=== PATIENT | female | born 1990 | race Caucasian/White ===

== ENCOUNTER 2019-08-31 06:01 | Inpatient (IN) | payer OTHER, SELFPAY ==
[2019-08-31] VITALS (150 sets, daily range): BP systolic 100–151; BP diastolic 47–108; PULSE 25–203; RESP 16–18; TEMP 35.8–37.4; O2SAT 75–100; BMI 32.5
--- NOTE | 2019-08-31 06:01 | LDADM ---
This patient, Ifrah Ware, was admitted to Labor/Delivery/Recovery 103 on 08/31/19 at 06:01. Plans for labor, pain management and were discussed with patient. Patient/family oriented to hospital policies and general routines including ID bracelet, bed and alarms, visiting hours, pain management, procedures, bathroom and other care routines, personal items, smoking policy, room service/diet and guest tray routines, infant security routines, and visiting hours. Patient/Family are encouraged to report perceived risks to care and to ask questions if they do not understand what they are told or what they should do. See OBIX for further documentation.
[2019-08-31 07:06] LABS: Basophils Percent Auto 0.3 % (0.2-1.2); Eosinophils Percent Auto 0.4 % (0-4.4); Hematocrit 30.8 % (37.0-47.0); Hemoglobin 9.9 g/dL (12.0-15.0); Immature Granulocyte Absolute 0.06 K/mm3 (0.00-0.031); Immature Granulocyte Percent A 0.8 % (0-0.5); Lymphocytes Absolute Auto 1.25 K/mm3 (0.9-3.2); Lymphocytes Percent Auto 17.2 % (18.3-44.2); Mean Corpuscular HGB Conc 32.1 g/dl (32-36); Mean Corpuscular Hemoglobin 26.7 pg (26-34); Mean Platelet Volume 12.9 fl (7.4-10.4); Monocytes Absolute Auto 0.5 K/mm3 (0.1-0.6); Monocytes Percent Auto 6.8 % (2.6-8.5); Neutrophils Absolute Auto 5.4 K/mm3 (1.3-6.7); Neutrophils Percent Auto 74.5 % (45.5-73.1); Platelet Count Result 209 k/mm3 (150-375); Red Blood Count 3.71 M/mm3 (4.2-5.4); Red Cell Distribution Width 14.7 % (11.5-14.5); White Blood Count 7.3 K/mm3 (4.5-10.0)
[2019-08-31] MEDS: LACTATED RINGERS 1,000 ML 125 ML IV CONT ×3 (07:39→12:52)
[2019-08-31] MEDS: OXYTOCIN 30 UNITS/NS 500 ML 30 UNITS/500 ML BAG 6 UNITS IV CONT (07:40)
--- NOTE | 2019-08-31 08:29 | WPDOBADMIT ---
Obstetrics - Admit Note Admission Note: record reviewed. Additions to the history and/or subsequent changes in the physical findings follow. 29 y/o G1 at 39 weeks here for induction of labor. GBS neg. AVSS NST reactive TOCO: contractions irregularly ABD soft, nontender, gravid, vertex EXT nontender Cervix 4/50/-2. AROM with clear fluid. A: IUP at 39 weeks with favorable cervix, desiring induction of labor. P: Oxytocin. Anticipate .
--- NOTE | 2019-08-31 09:53 | P.PNAN_ITS ---
Anes - Eval Pre Procedure Procedure: labor epiduraL Date/Time: 08/31/19 09:53 Surgeon: Carlene Preop Diagnosis: Abdominal pain with contractions Pre Op Diagnosis: Induction of Labor Patient Data Age: 29 Gender: F Height: 5 ft 4 in Weight: 86 kg Last Vital Signs Temp 96.5 F L 08/31/19 09:28 Pulse 61 08/31/19 09:31 BP 122/76 08/31/19 09:31 Allergies Allergy/AdvReac Type Severity Reaction Status Date / Time Penicillins Allergy Mild Verified 09/30/16 11:13 Laboratory Tests 08/31/19 08/31/19 08/31/19 06:52 06:52 08:01 WBC 7.3 K/mm3 K/mm3 (4.5-10.0) RBC 3.71 M/mm3 L M/mm3 (4.2-5.4) Hgb 9.9 g/dL L g/dL (12.0-15.0) Hct 30.8 % L % (37.0-47.0) MCV 83.0 fl fl (80-100) MCH 26.7 pg pg (26-34) MCHC 32.1 g/dl g/dl (32-36) RDW 14.7 % H % (11.5-14.5) Plt Count 209 k/mm3 k/mm3 (150-375) MPV 12.9 fl H fl (7.4-10.4) Immature Gran % (Auto) 0.8 % H % (0-0.5) Neut % (Auto) 74.5 % H % (45.5-73.1) Lymph % (Auto) 17.2 % L % (18.3-44.2) [place] % (Auto) 6.8 % % (2.6-8.5) Eos % (Auto) 0.4 % % (0-4.4) Baso % (Auto) 0.3 % % (0.2-1.2) Lymph # (Auto) 1.25 K/mm3 K/mm3 (0.9-3.2) [place] # (Auto) 0.5 K/mm3 K/mm3 (0.1-0.6) Eos # (Auto) 0.0 K/mm3 K/mm3 (0-0.3) Baso # (Auto) 0.0 K/mm3 K/mm3 (0.0-0.1) Abs Immat Gran (auto) 0.06 K/mm3 H K/mm3 (0.00-0.031) Absolute Neuts (auto) 5.4 K/mm3 K/mm3 (1.3-6.7) Absolute Nucleated RBC 0.0 K/mm3 K/mm3 (0.0-0.012) Nucleated RBC % 0.0 % % (0.0-0.2) RPR Pending Blood Type B Positive Antibody Screen Negative Patient hx anesthesia problems: none Family hx anesthesia problems: none [facility] Past Medical History Medical History (Updated 08/31/19 @ 09:55 by Drake Schofield CRNA) Social History Social History Smoking status: Never smoker Substance use: never Gender identity (if verbalized by the patient): Female Spiritual care concerns: No Exam Day of Procedure 08/31/19 09:53 Patient weight: obese Heart: regular rate and rhythm Lungs: clear to auscultation Airway: Mallampati scale class II Neurological: alert and oriented
--- NOTE | 2019-08-31 13:02 | PM.OBPNLAB ---
Pain Control Date/time seen: 08/31/19 13:02 Comments: Comfortable with epidural. Pelvic Exam Comments: Cervix 6-7 cm per RN. Assessment and Plan Comments: AVSS NST reactive TOCO: Contractions every 2-3 min Continue labor
[2019-08-31] MEDS: ONDANSETRON INJ 4 MG/2 ML VIAL IV PUSH (14:38)
--- NOTE | 2019-08-31 17:35 | PM.OBPRVD ---
OB - Delivery Note Procedure Delivery date: 08/31/19 Procedure: Induction of labor with VAVD Induction method: AROM and per pitocin protocol Delivery monitor: external FHT, external uterine and internal uterine Route of delivery: vacuum extraction Indication for instrumentation: other (arrest of descent) Laceration description: Vaginal - 2nd Degree Delivery repair: vicryl (3-0 Vicryl) Specimen: Yes (cord blood) Estimated blood loss (mL): 265 Anesthesia type: Epidural Disposition: PACU Complications: None Narrative: 29 y/o primigravida at 39 weeks gestation who presented to the hospital for induction of labor. Oxytocin was administered intravenously. Amniotomy was performed with return of clear fluid. She received an epidural for pain control. Her labor progressed and her cervix dilated completely. She pushed with good effort for 1 1/2 hours, but could not bring the presenting part beyond the +2 of 3 station. Position was GRADY. I offered continued attempts at pushing vs. vs. instrumented delivery. Reviewed risks, benefits, alternatives in detail, and she opted to pursue VAVD. Kiwi vacuum suction cup applied to the vertex using the Dreifingergriff. The head was gently flexed, and over 5 contractions, with one pop-off, the head delivered to the perineum. The Kiwi was disconnected and the body delivered. The nose and mouth were bulb suctioned. After a delay, the cord was clamped and cut. The was handed off the field. Cord blood was collected. The placenta delivered spontaneously and was grossly normal in appearance. The usual 3 vessel cord was noted. A second degree midline perineal laceration was sustained. This was reapproximated using 3 0 Vicryl in the usual layered fashion. Excellent hemostasis resulted as did excellent reapproximation of the normal anatomy. Needle and instrument counts were correct. The patient was taken to recovery room in stable condition. The infant went to the nursery in stable condition. I was present and scrubbed for the entire delivery. Baby Date of : 08/31/19 Time of : 17:15 Weeks of gestation at delivery: 39 gender: Female Weight (pounds): 8 Weight (ounces): 6 presentation: vertex position: Left Occiput Anterior Placenta delivery description: Spontaneous and Normal Configuration cord vessel description: 3 Vessels score one minute: 7 score five minutes: 9
[2019-08-31] MEDS: OXYTOCIN 30 UNITS/NS 500 ML 30 UNITS/500 ML BAG 125 UNITS IV CONT (17:53)
--- NOTE | 2019-08-31 17:57 | P.DS_ITS ---
DS: Diagnosis Discharge Diagnosis (1) Vacuum-assisted vaginal delivery: Code(s): Z37.9 - Outcome of delivery, unspecified Status: Acute OB - DS: Summary OB Procedures : None OB Procedures Intrapartum: Vacuum extraction OB Procedures: : None Time Spent with Patient Time attestation: Total time spent providing and/or coordinating discharge services: DS: Data Data Completed and Pending Labs on day of discharge: Labs from last 24 hours 08/31/19 08/31/19 08/31/19 08:01 06:52 06:52 WBC 7.3 RBC 3.71 L Hgb 9.9 L Hct 30.8 L MCV 83.0 MCH 26.7 MCHC 32.1 RDW 14.7 H Plt Count 209 MPV 12.9 H Immature Gran % (Auto) 0.8 H Neut % (Auto) 74.5 H Lymph % (Auto) 17.2 L [place] % (Auto) 6.8 Eos % (Auto) 0.4 Baso % (Auto) 0.3 Lymph # (Auto) 1.25 [place] # (Auto) 0.5 Eos # (Auto) 0.0 Baso # (Auto) 0.0 Abs Immat Gran (auto) 0.06 H Absolute Neuts (auto) 5.4 Absolute Nucleated RBC 0.0 Nucleated RBC % 0.0 RPR Pending Blood Type B Positive Antibody Screen Negative Discharge Plan Discharge Attending physician on discharge: Rodo Concepcion Discharging Clinician: Rodo Concepcion Patient Disposition: Home, Self-Care Activity: no preference Diet: regular Discharge Instructions: Call or return if temperature above 100.4? F, increased abdominal pain, increased vaginal bleeding or any new problems. Stand Alone Forms: General Discharge Information Follow-up/Referrals: Rodo Concepcion MD [Physician] - (6 weeks) Discharge Medications: New ibuprofen 600 mg tablet 600 mg PO Q6H PRN (Reason: cramps) Qty: 30 RF: 0 No Action PNV cmb#95-ferrous fumarate-FA [] 28 mg iron- 800 mcg Tablet 1 tablet PO DAILY RF: 0 Date of admission: 08/31/19 06:01 Primary Care Provider: Robel Ziegler Admitting Provider: Rodo Concepcion Attending physician on admission: Rodo Concepcion
[2019-08-31] MEDS: WITCH HAZEL 40 PADS 1 PAD TOPICAL (20:01)
[2019-08-31] MEDS: IBUPROFEN 600 MG TABLET PO (20:01)
[2019-08-31] MEDS: BENZOCAINE 20% AER SPR (*SP) 56 GM CAN 1 SPRAY TOPICAL (20:02)
[2019-08-31] MEDS: ACETAMINOPHEN 325 MG TABLET 650 MG PO (21:10)
[2019-09-01] MEDS: IBUPROFEN 600 MG TABLET PO ×4 (01:47→22:29)
[2019-09-01] MEDS: ACETAMINOPHEN 325 MG TABLET 650 MG PO (03:45)
[2019-09-01 06:06] LABS: Hematocrit 26.9 % (37.0-47.0); Hemoglobin 8.2 g/dL (12.0-15.0)
[2019-09-01 07:25] VITALS: BP 122/68; PULSE 81; RESP 18; TEMP 36.6; O2SAT 94
[2019-09-01 07:35] LABS: Rapid Plasma Reagin Non-Reactive (NonReactive)
--- NOTE | 2019-09-01 09:00 | PC.NURSE ---
PT introductions made and plan of care discussed per post , pain management, breast feeding, daily care activities and headache. PT verbalized understanding of such care.
[2019-09-01 09:20] VITALS: PULSE 81; RESP 18; O2SAT 94
[2019-09-01] MEDS: POLYSACCHARIDE IRON COMPLEX 150 MG CAPSULE PO ×2 (09:21→16:17)
[2019-09-01] MEDS: MULTIVIT/MIN/PREN/FOL AC/IRON TABLET 1 TAB PO (09:21)
[2019-09-01] MEDS: DOCUSATE SODIUM 100 MG CAPSULE PO ×2 (09:21→16:17)
--- NOTE | 2019-09-01 12:40 | PC.NURSE ---
Consulted with patient, mother request assist with latching. Mother has a spinal headache and is having difficulties with positioning/alignment due to trying to lay flat. Reviewed feeding cues, frequencies, duration of feedings, feeding elimination flow sheet, and signs of adequate intake. Demonstrated stimulation techniques to wake for feeding. Assisted with to breast. Reviewed positioning/alignment, holding breast and asymmetrical latch on. Several attempt made, infant was unable to latch correctly. bottle fed per mothers request.
--- NOTE | 2019-09-01 13:24 | WPDANESEBPP ---
Anes - Epidural Blood Patch PN Date/Time: 09/01/19 13:24 Consent: I have discussed with the patient/family/POA, the rationale of a lumbar epidural autologous blood patch for the treatment of post-dural puncture headache (spinal headache), including associated potential risks, benefits, complications and side effects. I have also discussed more conservative treatment options such as intravenous hydration, caffeine and non-prescription analgesics. The patient/family/POA, understand(s) and wish(es) to proceed with epidural autologous blood patch as treatment for the patient's post-dural puncture headache. Time-Out: A pre-procedural Time-Out was completed immediately before starting the procedure and confirmed: Patient Identification, Site, Procedure, Patient Position and the Availability of Requisite Equipment. Epidural Insertion Note Patient position: sitting Skin prep: chlorhexidine and sterile drape Needle: 18 gauge Tuohy-Schliff Technique: loss of resistance Skin anesthesia: lidocaine 1% Observations: tolerated well Complications: none and other (attempt (1) L2-L3 unable to get to space. attempt (2) L3-L4 +GLORIA -NEG hem/csf - 17cc blood injected with ease. blood drawn nitriles lab technician JV/[id number])
--- NOTE | 2019-09-01 13:43 | PM.OBPNVD ---
OB - PN: Subj Subjective Date/time seen: 09/01/19 13:43 Narrative: Positional headache. Just received blood patch. OB - PN: Obj Data Labs CBC & Chem 7: 09/01/19 04:37 Labs: Laboratory Results - last 24 hr 08/31/19 09/01/19 06:52 04:37 Hgb 8.2 L Hct 26.9 L RPR Non-reactive OB - PN A/P Plan Comments: A: PPD#1, doing well. P: Routine care. Exam Psych: Other: AVSS ABD soft, nontender, fundus firm EXT nontender
[2019-09-01 18:55] VITALS: BP 112/81; PULSE 67; RESP 16; TEMP 36.8
[2019-09-02] MEDS: ACETAMINOPHEN 325 MG TABLET 650 MG PO ×2 (03:13→09:30)
--- NOTE | 2019-09-02 07:30 | PC.NURSE ---
PT introductions made and plan of care discussed per post , pain management, breast feeding, daily care activities and pending discharge to home. PT verbalized understanding of such care.
[2019-09-02 07:50] VITALS: BP 125/92; PULSE 77; RESP 16; TEMP 36.6; O2SAT 99
[2019-09-02 09:30] VITALS: PULSE 77; RESP 16; O2SAT 99
[2019-09-02] MEDS: MULTIVIT/MIN/PREN/FOL AC/IRON TABLET 1 TAB PO (09:31)
[2019-09-02] MEDS: IBUPROFEN 600 MG TABLET PO (09:31)
[2019-09-02] MEDS: DOCUSATE SODIUM 100 MG CAPSULE PO (09:32)
[2019-09-02] MEDS: POLYSACCHARIDE IRON COMPLEX 150 MG CAPSULE PO (09:32)
--- NOTE | 2019-09-02 09:45 | PC.NURSE ---
Observed mother is able to independently latch with appropriate positioning/alignment. She denies any nipple discomfort, is feeding as required and waking infant to feed if needed. has had 8 effective feedings in the past 24 hours, and is currently meeting outcomes for weight, output, jaundice and feeding frequencies. Mother states she feels confident to continue effective at home. Reviewed transition to breast milk, signs of adequate intake, and engorgement/relief. Instructed to call ICP if intake/output less than required. Reviewed regular medications mother is taking. Information provided per Anita. Reviewed community resources on the [facility] website and in the Mom/Baby guide. Information on outpatient services provided. Mother has no further questions at this time.
--- NOTE | 2019-09-02 13:37 | PM.OBPNVD ---
OB - PN: Subj Subjective Date/time seen: 09/02/19 13:37 Narrative: Pain OK. Would like to go home. OB - PN: Obj Data Labs CBC & Chem 7: 09/01/19 04:37 OB - PN A/P Plan Comments: A: PPD#2, doing well. P: Home to f/u 6 weeks. Exam Psych: Other: AVSS ABD soft, nontender, fundus firm EXT nontender
--- NOTE | 2019-09-02 13:50 | PC.NURSE ---
PT received discharge instructions per protocol and verbalized understanding of such care.
--- NOTE | 2019-09-02 14:15 | PC.NURSE ---
Pt discharged to home ambulatory accompanied by spouse and and taken to waiting car. Follow up appts confirmed
[2019-09-03 08:51] VITALS: BP 119/75; PULSE 71; RESP 20; TEMP 37.1; O2SAT 98
== END 2019-09-02 14:15 | disposition home or self-care (01) | DRG 807 ==
LOC: ANHLDR 17:59 → ANHOB2 21:29
PROVIDERS: Admitting Provider Obstetrics & Gynecology; PCP Family Medicine Adolescent Medicine; Visit Provider Obstetrics & Gynecology
DX: O99.214 Obesity complicating childbirth (principal); Z37.0 Single live birth; Z3A.39 39 weeks gestation of pregnancy; E66.9 Obesity, unspecified; O70.1 Second degree perineal laceration during delivery; O32.4XX0 Maternal care for high head at term, not applicable or unspecified; G97.1 Other reaction to spinal and lumbar puncture
CPT/HCPCS: 36415; 85014; 85018; 85025; 86592; 86850; 86900; 86901; A9270; J2405; J2590; J2795; J7120

== ENCOUNTER 2021-10-16 09:51 | Observation (INO) | payer OTHER, SELFPAY ==
[2021-10-16] VITALS (9 sets, daily range): BP systolic 47–114; BP diastolic 14–73; PULSE 82–117; BMI 33.3
--- NOTE | 2021-10-16 09:51 | OBADM ---
This patient, Ifrah Ware, admitted to the OB room Labor/Delivery/Recovery 106 for observation. Patient/family oriented to hospital policies and general routines including ID bracelet, bed and alarms, visiting hours, pain management, procedures, bathroom and other care routines, personal items, smoking policy, room service/diet, and visiting hours. Patient/Family are encouraged to report perceived risks to care and to ask questions if they do not understand what they are told or what they should do.
[2021-10-16] MEDS: DEXTROSE 5%/LACTATED RINGERS 1,000 ML 999 ML IV CONT (11:12)
[2021-10-16] MEDS: ONDANSETRON INJ 4 MG/2 ML VIAL IV PUSH (11:12)
--- NOTE | 2021-10-16 12:30 | PC.NURSE ---
Patient reports she is resting more comfortably. Patient states nausea has resolved and she is tolerating clear liquids. Patient states contractions intensity has decreased and she is not feeling contractions as frequently.
--- NOTE | 2021-10-16 13:25 | PC.NURSE ---
Discharge instructions reviewed with patient. Patient states understanding of discharge instructions and denies questions. Labor precautions reviewed with patient. Patient instructed to picker feeder prescription from pharmacy and keep her regular scheduled appointment with Dr. Concepcion this 10/18/2021.
--- NOTE | 2021-10-23 08:47 | PM.OBTRLD ---
OB - Triage/Final Diagnosis Visit Information Comments/Additional reasons for admission: I have assessed the risk for this patient, Ifrah Ware, and determined that she would benefit from observation care. Final Diagnosis (1) Nausea and vomiting during : Code(s): O21.9 - Vomiting of , unspecified Status: Acute
== END 2021-10-16 13:26 | disposition home or self-care (01) ==
PROVIDERS: Admitting Provider Obstetrics & Gynecology; PCP Family Medicine Adolescent Medicine; Visit Provider Obstetrics & Gynecology
DX: O21.2 Late vomiting of pregnancy (principal); Z3A.37 37 weeks gestation of pregnancy; O21.0 Mild hyperemesis gravidarum
CPT/HCPCS: 96361; 96374; G0378; G0379; J2405; J7121

== ENCOUNTER 2021-10-24 05:56 | Inpatient (IN) | payer OTHER, SELFPAY ==
[2021-10-24] VITALS (33 sets, daily range): BP systolic 97–146; BP diastolic 39–116; PULSE 57–114; RESP 16; TEMP 35.7–36.6; BMI 32.9
--- NOTE | 2021-10-24 06:26 | LDADM ---
This patient, Ifrah Ware, was admitted to Labor/Delivery/Recovery 105 on 10/24/21 at 05:56. Plans for labor, pain management and were discussed with patient. Patient/family oriented to hospital policies and general routines including ID bracelet, bed and alarms, visiting hours, pain management, procedures, bathroom and other care routines, personal items, smoking policy, room service/diet and guest tray routines, infant security routines, and visiting hours. Patient/Family are encouraged to report perceived risks to care and to ask questions if they do not understand what they are told or what they should do. See OBIX for further documentation.
[2021-10-24 06:37] LABS: Basophils Percent Auto 0.3 % (0.2-1.2); Eosinophils Absolute Auto 0.1 K/mm3 (0-0.3); Eosinophils Percent Auto 0.8 % (0-4.4); Hematocrit 38.8 % (37.0-47.0); Hemoglobin 12.8 g/dL (12.0-15.0); Immature Granulocyte Absolute 0.05 K/mm3 (0.00-0.031); Immature Granulocyte Percent A 0.6 % (0-0.5); Lymphocytes Absolute Auto 1.69 K/mm3 (0.9-3.2); Lymphocytes Percent Auto 19.4 % (18.3-44.2); Mean Corpuscular Hemoglobin 29.8 pg (26-34); Mean Corpuscular Volume 90.2 fl (80-100); Mean Platelet Volume 11.1 fl (7.4-10.4); Monocytes Absolute Auto 0.5 K/mm3 (0.1-0.6); Monocytes Percent Auto 5.8 % (2.6-8.5); Neutrophils Absolute Auto 6.4 K/mm3 (1.3-6.7); Neutrophils Percent Auto 73.1 % (45.5-73.1); Platelet Count Result 170 k/mm3 (150-375); Red Cell Distribution Width 13.4 % (11.5-14.5); White Blood Count 8.7 K/mm3 (4.5-10.0)
[2021-10-24] MEDS: LACTATED RINGERS 1,000 ML 125 ML IV CONT (06:50)
[2021-10-24] MEDS: OXYTOCIN 30 UNITS/NS 500 ML 30 UNITS/500 ML BAG IV CONT (06:50)
--- NOTE | 2021-10-24 07:24 | PM.OBPNLAB ---
Pain Control Date/time seen: 10/24/21 07:24 Comments: AROM clear. FHTs reassuring Pelvic Exam Comments: /-2
--- NOTE | 2021-10-24 12:20 | WPDOBADMIT ---
Obstetrics - Admit Note Admission Note: record reviewed. Additions to the history and/or subsequent changes in the physical findings follow. 31 y/o at 39 weeks here for scheduled induction of labor. AROM this morning. Receiving oxytocin. Feeling more contractions. GBS neg. AVSS NST reactive TOCO: contractions every 3-5 min ABD soft, nontender, gravid, vertex EXT nontender Cervix 4/50/-2. IUPC placed. A: IUP at term desiring induction of labor. P: Oxytocin. Anticipate .
[2021-10-24 14:32] LABS: Rapid Plasma Reagin Non-Reactive (NonReactive)
--- NOTE | 2021-10-24 15:20 | P.PCNOB_ITS ---
OB - Delivery Note Procedure Delivery date: 10/24/21 Procedure: Induction of labor with Complications: None Narrative: 31 y/o at 39 weeks gestation who presented to the hospital for induction of labor. Oxytocin was administered intravenously. Amniotomy was performed with return of clear fluid. Her labor progressed and her cervix dilated completely. She pushed with good effort and delivered the 's head to the perineum. A loose nuchal cord was splinted and the body delivered. The cord was reduced. The nose and mouth were bulb suctioned. After a delay, the cord was clamped and cut. The was handed off the field. Cord blood was collected. The placenta delivered spontaneously and was grossly normal in appearance. The usual 3 vessel cord was noted. A first degree midline perineal laceration was sustained. This was infiltrated with 10 mL of 1% lidocaine and reapproximated using 3 0 Vicryl in the usual layered fashion. Excellent hemostasis resulted as did excellent reapproximation of the normal anatomy. Needle and instrument counts were correct. The patient was taken to recovery room in stable condition. The infant went to the nursery in stable condition. I was present and scrubbed for the entire delivery. [place] Baby Date of : 10/24/21 Time of : 15:03 Weeks of gestation at delivery: 39 gender: Male Weight (pounds): 8 Weight (ounces): 2 presentation: vertex position: Right Occiput Anterior Placenta delivery description: Spontaneous and Normal Configuration Cord Vessel Description: 3 Vessels, Nuchal Cord and Delayed Cord Clamping score one minute: 8 score five minutes: 9
[2021-10-24] MEDS: BENZOCAINE 20% AER SPR (*SP) 56 GM CAN 1 SPRAY TOPICAL (16:15)
[2021-10-24] MEDS: WITCH HAZEL 40 PADS 1 PAD TOPICAL (16:15)
--- NOTE | 2021-10-24 18:03 | OBPPTRN ---
Patient transferred to post room #290 via W/C. Support person present. Oriented to unit, room, information board, rooming in, admission packet and security measures. Patient verbalizes understanding.
[2021-10-25] VITALS: BP 101/57; PULSE 67; RESP 16; TEMP 36.9
[2021-10-25 04:30] VITALS: BP 118/70; PULSE 70; RESP 16; TEMP 36.8
[2021-10-25] MEDS: IBUPROFEN 600 MG TABLET PO (04:41)
[2021-10-25 05:23] LABS: Hematocrit 38.1 % (37.0-47.0); Hemoglobin 12.4 g/dL (12.0-15.0)
[2021-10-25 08:00] VITALS: PULSE 62; RESP 16; O2SAT 98
[2021-10-25] MEDS: MULTIVIT/MIN/PREN/FOL AC/IRON TABLET 1 TAB PO (08:26)
[2021-10-25] MEDS: DOCUSATE SODIUM 100 MG CAPSULE PO (08:26)
[2021-10-25 08:30] VITALS: BP 99/64; PULSE 62; RESP 16; TEMP 36.2; O2SAT 98
--- NOTE | 2021-10-25 08:35 | PM.OBPNVD ---
OB - PN: Subj Subjective Date/time seen: 10/25/21 08:35 Narrative: Pain OK. Would like circumcision for son. Would like to go home. AVSS ABD soft, nontender, fundus firm EXT nontender A: PPD#1, doing well. P: Reviewed circ. May go home and f/u 6 weeks. OB - PN: Obj Data Labs CBC & Chem 7: 10/25/21 04:38 Labs: Laboratory Results - last 24 hr 10/24/21 10/25/21 06:30 04:38 Hgb 12.4 Hct 38.1 RPR Non-reactive
--- NOTE | 2021-10-25 08:42 | PM.OBDSVD ---
DS: Admitting Diagnosis Discharge Date 10/25/21 Admitting Diagnosis IUP at 39 weeks DS: Discharge Diagnosis Discharge Diagnosis (1) (normal spontaneous vaginal delivery): Code(s): O80 - Encounter for full-term uncomplicated delivery Status: Acute OB - DS: Summary OB Procedures : None OB Procedures Intrapartum: Spontaneous Vag Delivery OB Procedures: : None Peripartum Data Delivery Method: Natural Vaginal () Laceration Description: Perineal - 1st Degree DS: Data Data Completed and Pending Labs on day of discharge: Labs from last 24 hours 10/25/21 10/24/21 04:38 06:30 Hgb 12.4 Hct 38.1 RPR Non-reactive Discharge Plan Discharge Attending physician on discharge: Rodo Concepcion Discharging Clinician: Rodo Concepcion Patient Disposition: Home, Self-Care Activity: pelvic rest Diet: regular Discharge Instructions: Call or return if temperature above 100.4? F, increased abdominal pain, increased vaginal bleeding or any new problems. Stand Alone Forms: General Discharge Information Follow-up/Referrals: Rodo Concepcion MD [Physician] - 6 Weeks Discharge Medications: New ibuprofen 600 mg tablet 600 mg PO Q6H PRN (Reason: cramps) Qty: 30 0RF Continued PNV cmb#95-ferrous fumarate-FA [] 28 mg iron- 800 mcg Tablet 1 tablet PO DAILY Date of admission: 10/24/21 05:56 Primary Care Provider: Robel Ziegler Admitting Provider: Rodo Concepcion Attending physician on admission: oRdo Concepcion Condition: Stable
[2021-10-25 11:40] VITALS: BP 111/64; PULSE 71; RESP 16; TEMP 36.4; O2SAT 99
--- NOTE | 2021-10-25 15:52 | PC.NURSE ---
1353 - Introductions were made, then consulted with patient to assess needs related to . Mother led the conversation with her experience feeding her infant so far. Mother works well with her . Mother had just breastfed her but is not sure if infant is latching well and she has a history of milk taking 3 weeks to come in, poor latching, with first infant becoming jaundice. Encouraged understanding of the benefits of skin to skin (unwrapping infant and placing vertically on her chest), responsive feeding and how to watch for early feeding signs, frequency of feeding on demand about every 8-12 times in 24 hours (every 2-3 hours), milk production, duration of feeding, signs of adequate intake/output and how to record on the feeding sheet. Mother voiced calling for RN assistance with latching at the next feeding. [id number] Reviewed positioning and ear, shoulder, hip alignment, supporting the breast, asymmetrical latch (off-center), and leading with the chin with a big open side gape. latched optimally to the right breast, then pulled back to a shallow latch and fell asleep. Demonstrated skin to skin stimulation with mother. RN assisted mother with infant to the left breast in football position. Education given to mother of how to visualize suck/swallow ratios and drinking at the breast. Infant was able to maintain latch without discomfort to mother. Nipple care reviewed with optimal latch and good positioning. Reminding mother of comfort measures of healing with a warm and wet washcloth to rinse breast, then leave open to air-dry as needed. Reviewed good handwashing when or touching the breast/nipples to prevent infection. Resources used to facilitate learning were used with the visual handouts/ tool/mom and baby guide. has had appropriate feedings in the last 24 hours meets the outcomes for weight, output and jaundice at this time. Mother states she is confident to continue effectively her at home or when to call for assistance and denies any additional assistance or education at this time. Reinforced understanding of milk production, transition of milk, signs of adequate intake, prevention/relief of engorgement, responsive after visualizing feeding cues, the different methods of stimulating to breastfeed 2-3 hours after the start of the last feeding, community resources, medication information reviewed per [employer] and when to call a provider using the resource of the mom and baby guide/[facility] website. Mother voiced understanding of the education shared. Reported to the primary RN.
--- NOTE | 2021-10-25 17:12 | PC.NURSE ---
Patient viewed the discharge video Mother & Baby Care, The First Two Weeks . Patient was given the opportunity and encouraged to ask questions. Patient verbalized understanding of information shared and has been given the mother/baby guide for home reference.
[2021-10-27 11:41] VITALS: BP 105/67; PULSE 55; RESP 16; TEMP 36.9; O2SAT 99
== END 2021-10-25 18:05 | disposition home or self-care (01) | DRG 807 ==
LOC: ANHLDR 06:01 → ANHOB2 18:06
PROVIDERS: Admitting Provider Obstetrics & Gynecology; PCP Family Medicine Adolescent Medicine; Visit Provider Obstetrics & Gynecology
DX: O69.89X0 Labor and delivery complicated by other cord complications, not applicable or unspecified (principal); Z37.0 Single live birth; O70.0 First degree perineal laceration during delivery; Z3A.39 39 weeks gestation of pregnancy
CPT/HCPCS: 36415; 85014; 85018; 85025; 86592; 86850; 86900; 86901; A9270; J2590; J7120

== ENCOUNTER 2024-06-03 10:20 | Emergency (ER) | payer OTHER, SELFPAY ==
[2024-06-03 10:33] VITALS: BP 106/74; PULSE 84; RESP 16; TEMP 36.8; O2SAT 100
--- NOTE | 2024-06-03 10:45 | ED_ITS ---
HPI - Skin/Abscess/Foreign Bdy General Chief complaint: Skin/Abscess/Foreign Body Stated complaint: abcess Time Seen by Provider: 06/03/24 10:45 Source: patient Mode of arrival: ambulatory Limitations: no limitations History of Present Illness HPI narrative: 34 y/o female presented for c/o abscess to left labia worsening for one week. States it started as a small itchy bump, and has become more red and painful. H as applied warm compresses. Denies drainage from the site. Denies history of abscesses. No other skin complaints at this time. Will see Obgyn 06/15. Related Data Allergies Allergy/AdvReac Type Severity Reaction Status Date / Time Penicillins Allergy Mild Hives Verified 06/03/24 10:47 Review of Systems Review of Systems: CONSTITUTIONAL: Denies body aches, fever, chills, or sweats. EYES: Denies visual changes, redness, or discharge. ENT: Denies rhinorrhea, congestion CARDIOVASCULAR: Denies chest pain, palpitations, or edema. RESPIRATORY: Denies cough or dyspnea. GASTROINTESTINAL: Denies abdominal pain, nausea, vomiting, or diarrhea. SKIN: per HPI MUSCULOSKELETAL: Denies back pain, joint pain, or myalgia. NEUROLOGIC: Denies headache, numbness, tingling, or weakness. FOR[facility]LY [facility] Past Medical History Medical History Family History Family History Other No pertinent family history Social History Social History Smoking status: Never smoker Substance use: never Gender identity (if verbalized by the patient): Female Spiritual care concerns: No Comments At time of signature, I have reviewed and agree with nursing past medical, surgical, social and family history unless otherwise noted. Please see nursing chart for further information. There is no relevant family history pertinent to the presenting complaint Exam Narrative: GENERAL: Well-appearing EYES: conjunctivae clear, and EOMI. ENT: Mucous membranes moist. Oropharynx without edema, erythema or lesions. NECK: Supple. No lymphadenopathy CHEST: Clear to auscultation. HEART: Regular rate and rhythm. SKIN: Warm, dry. External left labia with approx 4cm area of induration and swelling, tender, 1cm center with fluctuance, scant drainage c/w abscess. NEURO: Alert and oriented x3. Course Course Emergency Course: Patient is aware of diagnosis, understands and agrees to treatment plan. Anticipatory guidance given. Patient agrees to follow-up as directed and is aware of reasons to seek care at the emergency department. Portions of this record may have been created with voice recognition software Level of Care: Express Care Visit Vital Signs Vital signs: Vital Signs Temperature 98.2 F 06/03/24 10:33 Pulse Rate 84 06/03/24 10:33 Respiratory Rate 16 06/03/24 10:33 Blood Pressure 106/74 06/03/24 10:33 Pulse Oximetry 100 06/03/24 10:33 Temperature 98.2 F 06/03/24 10:33 Pulse Rate 84 06/03/24 10:33 Respiratory Rate 16 06/03/24 10:33 Blood Pressure 106/74 06/03/24 10:33 Pulse Oximetry 100 06/03/24 10:33 Reviewed Procedures Abscess I/D labia: Date of Incision: 06/03/24 Side (if applicable): left Local Anesthetic: lidocaine 1% Amount of anesthesia used (mL): 3 Technique: incised with #11 blade Irrigation: Yes Packing used?: none I&D Results: Pus and Blood Abcess I&D Additional Comments: The procedure and its alternatives were reviewed with patient. Risks were reviewed with patient including infection and damage to nearby structures. Patient provided verbal informed consent. The patient was positioned appropriately. Local anesthesia achieved. Single straight Incision made to center of most fluctuant area. Moderate amount of thick purulent discharge expelled with manual pressure. Wound irrigated and probed for loculations. Pt tolerated the procedure well, no complications. Dressing applied per RN. MDM - Skin/Abscess/Foreign Bdy MDM Narrative Medical decision making narrative: Discussed physical exam findings; tolerated abscess I&D. Advised supportive measures and signs/symptoms to go to the ER. Pt is appropriate for outpt treatment and f/u. Differential Diagnosis Differential diagnosis: Likely abscess of skin or subcutaneous tissue, urticaria, herpes zoster, cellulitis and contact dermatitis Discharge Plan Discharge Clinical Impression: Abscess of skin or subcutaneous tissue Patient Disposition: Home, Self-Care Condition: Stable Instructions: Antibiotic Form, Abscess (ED) Additional Instructions: You had an abscess drained today. You may shower; Cleanse area with warm soapy water Warm compresses at least 4 times a day to the site to help expel any additional drainage. Keep your wound covered while draining (you can wear a pad). Take antibiotic as directed - it can be harsh on the gut. Recommend a probiotic such as lactobacillus or Align, and Activia yogurt. Tylenol and ibuprofen every 8 hours for pain as needed Follow up with your primary care physician in 3 days for a wound check. Go to the Emergency Department for any worsening symptoms or concerns: Fevers, Increased redness, pain, or swelling around where your abscess was, etc Patient Language: Telugu Prescriptions: New doxycycline hyclate 100 mg tablet 100 mg PO BID 7 Days Qty: 14 0RF Follow-up/Referrals: Robel Ziegler MD [Primary Care Provider] - Time of Disposition: 11:27
== END 2024-06-03 11:30 | disposition home or self-care (01) ==
PROVIDERS: Emergency Provider Nurse Practitioner Family; PCP Family Medicine Adolescent Medicine
DX: N76.4 Abscess of vulva (principal); B95.62 Methicillin resistant Staphylococcus aureus infection as the cause of diseases classified elsewhere
CPT/HCPCS: 56405; 87070; 87075; 87181; 87205; 99213; G0463

== ENCOUNTER 2024-06-24 14:26 | Outpatient (CLI) | payer OTHER, SELFPAY ==
--- OUTSIDE RECORDS SUMMARY | 2024-06-25 05:44 | XMS_ITS | Patient Health Summary ---
Author Organization [facility] Address [address] [place] [address] Care Team Providers Care Transplanter Orchid Name Role Phone Jenny Hayes MD Primary Care Provider [phone] Note from [facility],non-owned Affiliates and Associated Physician Practices is amultiple site organization consisting of ambulatory clinics and hospital sitesin [place], [place], [place] and [place]. This disclosure is being madepursuant to the Care Everywhere program and may not contain all information available regarding this patient. Last updated 18.[facility] Allergies * Penicillins(Urticaria) -Medium Criticality Medications Be aware that medications may not be up to date on this document. Always verify current medications with the patient. No known medications Active Problems Problem Noted Date Diagnosed Date H/O systemic lupus erythematosus (SLE) 8 Positive RACHELLE (antinuclear antibody) 12/16/2017 Polyarthralgia 12/16/2017 Other fatigue 12/16/2017 Systemic involvement of connective tissue 2011 Screening, , for malformation by ultras ound Abnormal maternal serum screening test 18 weeks gestation of resulting from in vitro fertilization, antepartum Social History Tobacco Use Types Packs/Day Years Used Date Smoking Tobacco: Never Smokeless Tobacco: Never Alcohol Use Standard Drinks/Week Comments No 0 (1 standard drink = 0.6 oz pur e alcohol) Sex and Gender Information Value Date Recorded Sex Assigned at Not on file Gender Identity Not on file Sexual Orientation Not on file Last Filed Vital Signs Vital Sign Reading Time Taken Comments Blood Pressure 120/70 12/16/2017 2:05 PM CDT Pulse 71 12/16/2017 2:05 PM CDT Temperature 36.8 ??C (98.2 ??F) 12/16/2017 2:05 PM CD T Respiratory Rate - - Oxygen Saturation 99% 12/16/2017 2:05 PM CDT Inhaled Oxygen Concentration - - Weight 60.8 kg (134 lb) 12/16/2017 2:05 PM CDT Height 162.6 cm (5' 4 ) 12/16/2017 2:05 PM CDT Body Mass Index 23 12/16/2017 2:05 PM CDT Procedures * DERMATOPATHOLOGY(Performed 04/07/2020) * SONOGRAM - COMPLETE(Performed 05/04/2019) Performed for H/O systemic lupus erythematosus (SLE) ([facility]), Positive RACHELLE (antinuclear antibody), Screening, , for malformation by ultrasound ([facility]), Abnormal maternal serum screening test, 18weeks gestation of ([facility]), resulting from in vitro fertilization, antepartum ([facility]) * SONOGRAM - COMPLETE(Performed 04/06/2019) * INTERPRETATION (9)(Performed 12/19/2017) * STAGE 3(Performed 12/19/2017) * STAGE 2 (PO EF LAB)(Performed 12/19/2017) * STAGE 1(Performed 12/19/2017) * RACHELLE BLOOD TITER(Performed 12/19/2017) * COMPLEMENT C3(Performed 12/19/2017) Performed for H/O systemic lupus erythematosus (SLE) ([facility]), Positive RACHELLE (antinuclear antibody), Polyarthralgia, Myalgia, Other fatigue * HEPATITIS B SURFACE ANTIGEN W RFLX CONFIRMATION(Performed 12/19/2017) Performed for H/O systemic lupus erythematosus (SLE) ([facility]), Positive RACHELLE (antinuclear antibody), Polyarthralgia, Myalgia, Other fatigue * HEPATITIS C AB W/RFLX TO HCV RNA QN PCR(Performed 12/19/2017) Performed for H/O systemic lupus erythematosus (SLE) ([facility]), Positive RACHELLE (antinuclear antibody), Polyarthralgia, Myalgia, Other fatigue * CK BLOOD(Performed 12/19/2017) Performed for H/O systemic lupus erythematosus (SLE) ([facility]), Positive RACHELLE (antinuclear antibody), Polyarthralgia, Myalgia, Other fatigue * RNA POLYMERASE III ANTIBODY IGG(Performed 12/19/2017) Performed for H/O systemic lupus erythematosus (SLE) ([facility]), Positive RACHELLE (antinuclear antibody), Polyarthralgia, Myalgia, Other fatigue * COMPLEMENT C4(Performed 12/19/2017) Performed for H/O systemic lupus erythematosus (SLE) ([facility]), Positive RACHELLE (antinuclear antibody), Polyarthralgia, Myalgia, Other fatigue * URINALYSIS W/MICROSCOPIC REFLEX TO CULTURE(Performed 12/19/2017) Performed for H/O systemic lupus erythematosus (SLE) ([facility]), Positive RACHELLE (antinuclear antibody), Polyarthralgia, Myalgia, Other fatigue * THYROID PEROXIDASE ANTIBODY(Performed 12/19/2017) Performed for H/O systemic lupus erythematosus (SLE) ([facility]), Positive RACHELLE (antinuclear antibody), Polyarthralgia, Myalgia, Other fatigue * T4 FREE(Performed 12/19/2017) Performed for H/O systemic lupus erythematosus (SLE) ([facility]), Positive RACHELLE (antinuclear antibody), Polyarthralgia, Myalgia, Other fatigue * TSH(Performed 12/19/2017) Performed for H/O systemic lupus erythematosus (SLE) ([facility]), Positive RACHELLE (antinuclear antibody), Polyarthralgia, Myalgia, Other fatigue * LUPUS ANTICOAGULANT PANEL W RFLX(Performed 12/19/2017) Performed for H/O systemic lupus erythematosus (SLE) ([facility]), Positive RACHELLE (antinuclear antibody), Polyarthralgia, Myalgia, Other fatigue * BETA-2 GLYCOPROTEIN 1 ANTIBODY IGG/IGM/IGA PANEL(Performed 12/19/2017) Performed for H/O systemic lupus erythematosus (SLE) ([facility]), Positive RACHELLE (antinuclear antibody), Polyarthralgia, Myalgia, Other fatigue * CARDIOLIPIN ANTIBODY IGG/IGM PANEL(Performed 12/19/2017) Performed for H/O systemic lupus erythematosus (SLE) ([facility]), Positive RACHELLE (antinuclear antibody), Polyarthralgia, Myalgia, Other fatigue * COMPLEMENT TOTAL(Performed 12/19/2017) Performed for H/O systemic lupus erythematosus (SLE) ([facility]), Positive RACHELLE (antinuclear antibody), Polyarthralgia, Myalgia, Other fatigue * HISTONE ANTIBODY(Performed 12/19/2017) Performed for H/O systemic lupus erythematosus (SLE) ([facility]), Positive RACHELLE (antinuclear antibody), Polyarthralgia, Myalgia, Other fatigue * SCLERODERMA 70 (SCL) ANTIBODY(Performed 12/19/2017) Performed for H/O systemic lupus erythematosus (SLE) ([facility]), Positive RACHELLE (antinuclear antibody), Polyarthralgia, Myalgia, Other fatigue * SS-B (SJOGREN'S) ANTIBODY(Performed 12/19/2017) Performed for H/O systemic lupus erythematosus (SLE) ([facility]), Positive RACHELLE (antinuclear antibody), Polyarthralgia, Myalgia, Other fatigue * SS-A (SJOGREN'S) ANTIBODY(Performed 12/19/2017) Performed for H/O systemic lupus erythematosus (SLE) ([facility]), Positive RACHELLE (antinuclear antibody), Polyarthralgia, Myalgia, Other fatigue * SCREENING NURSE ANTIBODY(Performed 12/19/2017) Performed for H/O systemic lupus erythematosus (SLE) ([facility]), Positive RACHELLE (antinuclear antibody), Polyarthralgia, Myalgia, Other fatigue * RANGEL (SM) ANTIBODY ARABELLA(Performed 12/19/2017) Performed for H/O systemic lupus erythematosus (SLE) ([facility]), Positive RACHELLE (antinuclear antibody), Polyarthralgia, Myalgia, Other fatigue * RACHELLE SCREEN IFA W/REFLX T/P/C(Performed 12/19/2017) Performed for H/O systemic lupus erythematosus (SLE) ([facility]), Positive RACHELLE (antinuclear antibody), Polyarthralgia, Myalgia, Other fatigue * DNA ANTIBODY DOUBLE STRANDED(Performed 12/19/2017) Performed for H/O systemic lupus erythematosus (SLE) ([facility]), Positive RACHELLE (antinuclear antibody), Polyarthralgia, Myalgia, Other fatigue * RHEUMATOID FACTOR BLOOD QUANTITATIVE(Performed 12/19/2017) Performed for H/O systemic lupus erythematosus (SLE) ([facility]), Positive RACHELLE (antinuclear antibody), Polyarthralgia, Myalgia, Other fatigue * C-REACTIVE PROTEIN(Performed 12/19/2017) Performed for H/O systemic lupus erythematosus (SLE) ([facility]), Positive RACHELLE (antinuclear antibody), Polyarthralgia, Myalgia, Other fatigue * ERYTHROCYTE SEDIMENTATION RATE(Performed 12/19/2017) Performed for H/O systemic lupus erythematosus (SLE) ([facility]), Positive RACHELLE (antinuclear antibody), Polyarthralgia, Myalgia, Other fatigue * COMPREHENSIVE METABOLIC PANEL(Performed 12/19/2017) Performed for H/O systemic lupus erythematosus (SLE) ([facility]), Positive RACHELLE (antinuclear antibody), Polyarthralgia, Myalgia, Other fatigue * CBC W AUTO DIFFERENTIAL(Performed 12/19/2017) Performed for H/O systemic lupus erythematosus (SLE) ([facility]), Positive RACHELLE (antinuclear antibody), Polyarthralgia, Myalgia, Other fatigue * CULTURE URINE REFLEXED I(Performed 12/19/2017) * LAB HISTORICAL RESULTS-ONBASE(Performed 10/29/2011) Results * DERMATOPATHOLOGY (04/07/2020 12:00 AM BUTTON TACKER) Case Report Dermatopathology Report ? Case: [id number] ? Authorizing Provider: ??Merrill Carey MD ?Collected: ? 04/07/2020 12:00 AM ? Ordering Location: ? [facility] DermPath Lab ?Received: ?04/11/2020 06:25 AM ? Pathologist: ? Marj Erazo MD ? Specimens: ?? A) - Skin, right neck ? B) - Skin, right upper chest ? 0 12:50 PM [facility] DERMATOPATHOLOGY LABORATORY Final Diagnosis Specimen A. SKIN, right neck: INTRADERMAL MELANOCYTIC NEVUS (D22.4) Specimen B. SKIN, right upper chest: INTRADERMAL MELANOCYTIC NEVUS (D22.5) 0 12:50 PM [facility] DERMATOPATHOLOGY LABORATORY Clinical History A: Nevus R/O atypia. Path # [id number]. B: Nevus R/O atypia. Path # [id number]. 0 12:50 PM [facility] DERMATOPATHOLOGY LABORATORY Gross Description Specimen A: Received is one formalin filled container labeled with the patient's name and designated right neck. The specimen consists of a shave biopsy measuring 2w4x0hd. Jar 0. Specimen B: Received is one formalin filled container labeled with the patient's name and designated right upper chest. The specimen consists of a shave biopsy measuring 6n1s0ix. Jar 0. 0 12:50 PM [facility] DERMATOPATHOLOGY LABORATORY Microscopic Description Specimen A. SKIN, right neck: There are nests of cytologically bland melanocytes within the dermis that mature with depth. Specimen B. SKIN, right upper chest: There are nests of cytologically bland melanocytes within the dermis that mature with depth. 0 12:50 PM [facility] DERMATOPATHOLOGY LABORATORY Disclaimer An external and internal positive and negative controls are appropriate for the histochemical, immunohistochemical and immunofluorescence stain(s) in this case (if any), except where stated explicitly. The performance characteristics of the stain(s) cited in this report were developed and its performance characteristic determined by the Dermatopathology Laboratory at [facility], directed by Dr. Christine Rothman. These tests need not be, and therefore are not, approved by the [place] Food and Drug Administration. The tests are used for clinical purposes. Billing Codes Specimen Charges Stain Charges 39621 24371 1 1 0 12:50 PM [facility] T[facility]ER DERMATOPATHOLOGY LABORATORY Embedded Images 0 12:50 PM [facility] DERMATOPATHOLOGY LABORATORY Pathology/Cytology TISSUE SPECIMEN FROM SKIN / Unknown 04/07/2020 04/11/2020 6:25 AM BUTTON TACKER Miscellaneous samples (specimen) TISSUE SPECIMEN FROM SKIN / Unknown 04/07/2020 04/11/2020 6:25 AM BUTTON TACKER Merrill Carey MD LAB - PATHOLOGY/CYTO LOGY ORDERABLES DERMATOPATHOLOGY LABORATORY [facility] - Department of Dermatology [facility] Medicine [address] [place] [address], [address] [phone] * SONOGRAM - COMPLETE (05/04/2019 1:52 PM BUTTON TACKER) Only the most recent of2 resultswithin the time period is included. Anatomical Region Laterality Modality Other 05/04/2019 1:52 PM BUTTON TACKER Narrative 05/04/2019 2:34 PM BUTTON TACKER ?[facility] ? - [place] ? [facility] ?PHONE: ??FAX: Pat. Name: ?CECIL WARE No: ?[id number] Study Date: ?? 05/04/2019 ??1:52pm , Age: ? 1990, 29 Pregnancies: ?? 1 Height: ? 64 in Weight: ? 135 lb LMP: ?12/03/2018 GA by LMP: ?21w5d GA by Base: ?? 22w0d ?? LISA: 09/07/2019 GA by US: ? 22w1d ?? LISA: 09/06/2019 GA Selected: ??22w0d (From [facility]) LISA: ?09/07/2019 Referring MD: Rodo Concepcion MD Supervisor [employer]: ??Glo Wren RDMS CPT4: ? 68193 BMI: ?23.17 Hist/Ind: ? Low estriol (0.48 MoM) ?1:248 screening risk of trisomy 21, declined additional testing ?IVF ?Increased RACHELLE levels MEASUREMENTS & AGE ? GROWTH EVALUATION Measurement ??GA ? Range ? Srce %for GA Ratios ----- ---- ------- BPD ??5.4 cm 22w3d ([id number]) Hadl BPD 61% FL/BPD 0.72 HC ??20.2 cm 22w2d (03m6i-08d6j) Hadl HC ??54% FL/AC ??0.22 (0.20 - 0.24) AC ??17.5 cm 22w3d (00q8f-61r2v) Hadl AC ??55% HC/AC ??1.15 (1.04 - 1.23) FL ?? 3.9 cm 22w3d (98w2g-04f3g) Hadl FL ??55% CI ? 0.74 (0.70 - 0.86) HL ?? 3.7 cm 22w5d (37b1m-85p8s) Marin HL ??63% GA for sonogram 22w1d (71x4x-29x8q) ?? Weight Estimate: based on (BPD,HC,AC,FL) Hadlock ?Weight: 503 gm (429-576gm) Hadloc ? : 1lbs, 1oz ? Normal: 479 gm (359-598gm) Hadloc ? Wt% ? 66% for 22w0d Heart Rate: 153 bpm Amniotic Fluid Index: 06.1cm (Deepest Pocket) EVAL, PLACENTA Presentation: cephalic Umbilical Cord: 3 Vessels Placenta: anterior Heart Rate: 153 bpm Amniotic Fluid Volume: normal Anatomy!Normal!Abnormal!Suboptimal!Prev. Seen!Comments Cranium ?! ?! ?! ?! ? x ?! Mdl (CSP/Thal! ?! ?! ?! ? x ?! Ventricles ?? ! ?! ?! ?! ? x ?! Choroid Plexu! ?! ?! ?! ? x ?! Cerebellum ?? ! ?! ?! ?! ? x ?! Cisterna M. ??! ?! ?! ?! ? x ?! Nuchal Fold ??! ?! ?! ?! ? x ?! Profile ?! ?! ?! ?! ? x ?! Nasal Bone ?? ! ?! ?! ?! ? x ?! Lip ?! ?! ?! ?! ? x ?! Spine ?! ?! ?! ?! ? x ?! Lungs ?! ?! ?! ?! ? x ?! 4 Chamber Hea! ?! ?! ?! ? x ?! LVOT ? ! ?? x ??! ?! ?! ?! RVOT ? ! ?? x ??! ?! ?! ? x ?! 3 Vessel View! ?! ?! ?! ? x ?! Cross-over ?? ! ?! ?! ?! ? x ?! Ductal Arch ??! ?? x ??! ?! ?! ? x ?! Aortic Arch ??! ?! ?! ?! ? x ?! Caval View ?? ! ?! ?! ?! ? x ?! Situs ?! ?! ?! ?! ? x ?! Diaphragm ?! ?! ?! ?! ? x ?! Stomach ?! ?? x ??! ?! ?! ? x ?! Bowel ?! ?? x ??! ?! ?! ? x ?! Kidneys ?! ?? x ??! ?! ?! ? x ?! Bladder ?! ?? x ??! ?! ?! ? x ?! 3 Vessel Cord! ?! ?! ?! ? x ?! Cord In! ?! ?! ?! ? x ?! Upper Extremi! ?! ?! ?! ? x ?! Hands ?! ?! ?! ?! ? x ?! Lower Extreme! ?! ?! ?! ? x ?! Feet ? ! ?! ?! ?! ? x ?! External Kari! ?! ?! ?! ? x ?! Placental Cor! ?! ?! ?! ? x ?! CLINICAL SUMMARY Study Number: 2 ?? IMPRESSION: 1) Rosales gestation, 22w0d 2) Biometry is consistent with appropriate growth 3) No abnormalities have been detected on the, now complete, anatomic survey NOTE: The patient was advised that ultrasound does not allow detection of all structural or chromosomal abnormalities. ?? RECOMMEND: ?? Secondary to low estriol, follow up ultrasounds in 4 weeks then every 3-4 weeks thereafter, for the remainder of the , to monitor growth Thank you for allowing us the opportunity to care for your patient. Aretha Cornelius MD <Electronic Signature> ??05/04/2019 02:34pm Elham Bentley MD [facility] ORDERABLES * HEPATITIS C AB W/RFLX TO HCV RNA QN PCR (12/19/2017 1:15 PM CDT) [facility] Hepatitis C Antibody NON-REACTI VE NON-REACT VARGAS [facility] Signal to Cut-Off 0.05 <1.00 [facility] Comment: Test Performed at: [facility] [address] ??[phone] TING MELVIN DO,MPH Blood BLOOD SPECIMEN / Unknown 12/19/2017 1:15 PM CDT 12/19/2017 1:17 PM CDT Zabrina Anderson MD LAB - CHEMISTR Y ORDERABLES [facility] [address] [place] [address] * INTERPRETATION (9) (12/19/2017 1:15 PM CDT) [facility] Interpretation [facility] Comment: Centromere B antibody is associated with the CREST Syndrome: calcinosis, Raynaud's phenomenon, esophageal dysmotility, sclerodactyly, and telangiectasias. Test Performed at: [facility] [employer] [address] [place] ??[phone] TING MELVIN DO,MPH 12/19/2017 1:15 PM CDT 12/19/2017 1:17 PM CDT Zabrina Anderson MD LAB - SEROLOGY ORDERABLES Performing Organization Address [facility] [place] [address] * CULTURE URINE REFLEXED I (12/19/2017 1:15 PM CDT) Reflexive Urine Culture NO CULTURE INDICATED [facility] Comment: Test Performed at: [facility] [address] [place] ??[phone] TING MELVIN DO,MPH 12/19/2017 1:15 PM CDT 12/19/2017 1:17 PM CDT Zabrina Anderson MD LAB - MICROBIO LOGY ORDERABLES Performing Organization Address [facility] [place] [address] * (ABNORMAL) STAGE 3 (12/19/2017 1:15 PM CDT) Centromere B Antibody 5.4 POS(A) <1.0 NEG AI [facility] Ribosomal P Protein Antibody <1.0 NEG <1.0 NEG AI [facility] Comment: ANTIBODY PREVALENCE IN TIER 3 ? Tier 3 antibodies target centromere B and ribosomal P. Centromere B antibody is present in 27% systemic sclerosis (scleroderma), 66% CREST syndrome (Calcinosis, Raynaud's phenomenon, Esophageal dysmotility, Sclerodactyly, and Telangiectasia), 3% to 12% systemic lupus erythematosus (SLE), 7% mixed connective tissue disease (MCTD)(typically with features of polymyositis) and <2% Sjogren's syndrome, polymyositis and normal blood donors. ?? Ribosomal P antibody is present in 9% to 30% SLE and is associated with neurological manifestations, 7% MCTD and <2% Sjogren's syndrome, systemic sclerosis, polymyositis and normal blood donors. ?? The Gladwin does not rule out autoimmune disease characterized by other autoantibody specificities such as rheumatoid arthritis, autoimmune hepatitis, primary biliary cirrhosis, autoimmune thyroiditis, Timmy's disease, pernicious anemia, autoimmune neuropathies, vasculitis, celiac disease and bullous disease. Please contact your local [facility] laboratory if you are interested in additional testing. Test Performed at: [facility] [address] [place] ??[phone] TING MELVIN DO,MPH 12/19/2017 1:15 PM CDT 12/19/2017 1:17 PM CDT Zabrina Anderson MD LAB - SEROLOGY ORDERABLES Performing Organization Address [facility] de Phone Number [facility] [id number] [place] [address] * STAGE 2 (PO EF LAB) (12/19/2017 1:15 PM CDT) Sjogren's Antibodies (SSA) <1.0 NEG <1.0 NEG AI [facility] Sjogren's Antibodies (SSB) <1.0 NEG <1.0 NEG AI [facility] SCL-70 Antibody <1.0 NEG <1.0 NEG AI [facility] Yanci-1 Antibody <1.0 NEG <1.0 NEG AI [facility] Comment: Test Performed at: [facility] [address] [place] ??[phone] TING MELVIN DO,MPH 12/19/2017 1:15 PM CDT 12/19/2017 1:17 PM CDT Zabrina Anderson MD LAB - SEROLOGY ORDERABLES Performing Organization Address [facility] de Phone Number [facility] [id number] [place] [address] * STAGE 1 (12/19/2017 1:15 PM CDT) dsDNA Antibody 1 IU/mL [facility] Comment: ? IU/mL ? Interpretation ? < or = 4 ?Negative ? 5-9 ? Indeterminate ? > or = 10 ?? Positive SM Antibody <1.0 NEG <1.0 NEG AI [facility] SM/SCREENING NURSE Antibody <1.0 NEG <1.0 NEG AI [facility] SCREENING NURSE Antibody <1.0 NEG <1.0 NEG AI [facility] Chromatin Nucleosomal Antibody <1.0 NEG <1.0 NEG AI [facility] Comment: Test Performed at: [facility] ??[phone] TING MELVIN DO,MPH 12/19/2017 1:15 PM CDT 12/19/2017 1:17 PM CDT Zabrina Anderson MD LAB - SEROLOGY ORDERABLES [facility] [address] [place] [address] * (ABNORMAL) RACHELLE SCREEN IFA W/REFLX T/P/C (12/19/2017 1:15 PM CDT) RACHELLE Screen POSITIVE( A) NEGATIVE [facility] Comment: RACHELLE IFA is a first line screen for detecting the presence of up to approximately 150 autoantibodies in various autoimmune diseases. A positive RACHELLE IFA result is suggestive of autoimmune disease and reflexes to titer, pattern and the 3 tiered Multiplex 11 Antibody Gladwin. Testing in the Gladwin stops at the first positive result, and does not preclude additional positive results. Further laboratory testing may be considered if clinically indicated. Visit Physician FAQs for interpretation of all antibodies in the Gladwin, prevalence, and association with diseases at http://education.Kakoona/ faq/QYR499 ?? Test Performed at: [facility] [address] [place] [address] ??[phone] TING MELVIN DO,MPH Blood BLOOD SPECIMEN / Unknown 12/19/2017 1:15 PM CDT 12/19/2017 1:17 PM CDT Zabrina Anderson MD LAB - SEROLOGY ORDERABLES Performing Organization Address [facility] Co de Phone Number [facility] [id number] [place] [address] * RNA POLYMERASE III ANTIBODY IGG (12/19/2017 1:15 PM CDT) RNA Polymerase 3 Antibody <20 <20 Units [facility] Comment: Test Performed at: [facility] [address] [place], [place] ??[phone] CHRISTEL FRANCIS MD,PHD,ANTHONY Blood BLOOD SPECIMEN / Unknown 12/19/2017 1:15 PM CDT 12/19/2017 1:17 PM CDT Zabrina Anderson MD LAB - SEROLOGY ORDERABLES Performing Organization Address [facility] [place] [address] * (ABNORMAL) URINALYSIS W/MICROSCOPIC REFLEX TO CULTURE (12/19/2017 1:15 PM CDT) Pathologist [facility] Color UA YELLOW YELLOW [facility] Appearance CLEAR CLEAR [facility] Specific Sheldahl UA 1.006 1.001 - 1.035 [facility] pH UA 6.5 5.0 - 8.0 [facility] Glucose UA NEGATIVE NEGATIVE [facility] Bilirubin UA NEGATIVE NEGATIVE [facility] Ketone UA NEGATIVE NEGATIVE [facility] Blood UA TRACE(A) NEGATIVE [facility] Protein UA NEGATIVE NEGATIVE [facility] Nitrite NEGATIVE NEGATIVE [facility] Leukocyte Esterase NEGATIVE NEGATIVE [facility] WBC UA NONE SEEN < OR = 5 /HPF [facility] RBC UA NONE SEEN < OR = 2 /HPF [facility] Epithelial Cell UA NONE SEEN < OR = 5 /HPF [facility] Bacteria UA NONE SEEN NONE SEEN /HPF [facility] Hyaline Casts NONE SEEN NONE SEEN /LPF [facility] Comment: Test Performed at: [facility] [employer] [address] [place] ??[phone] TING MELVIN DO,MPH Urine URINE SPECIMEN OBTAINED BY CLEAN CATCH PROCEDURE / Unknown 12/19/2017 1:15 PM CDT 12/19/2017 1:17 PM CDT Zabrina Anderson MD LAB - URINALYS IS ORDERABLES [facility] [address] [place] [address] * CARDIOLIPIN ANTIBODY IGG/IGM PANEL (12/19/2017 1:15 PM CDT) Cardiolipin Antibody IgG <14 GPL [facility] Comment: < OR = 14 ??Negative ?15-20 ??Indeterminate ?21-80 ??Low to Medium Positive ?>80 ??High Positive Greater than or equal to 40 GPL is a risk factor for thrombosis and loss. For more information on this test, go to: http://Coupay.EndoChoice/faq/EKM387 Cardiolipin Antibody IgM <12 MPL [facility] Comment: Clinical Significance: The Antiphospholipid Antibody Syndrome (APS) is a clinical pathologic correlation that includes a clinical event (e.g. thrombosis, loss, thrombocytopenia) and persistent positive Antiphospholipid Antibodies (IgM or IgG JOSE >40 MPL/GPL, IgM or IgG anti-B2GP1 antibodies, or a Lupus Anticoagulant). The IgA isotype has been implicated in smaller studies, but have not yet been incorporated into the APS criteria. International consensus guidelines suggest waiting at least 12 weeks before retesting to confirm antibody persistence. Reference J Thromb Haemost 2006: 4; 295. < OR = 12 ??Negative ?13-20 ??Indeterminate ?21-80 ??Low to Medium Positive ?>80 ??High Positive Greater than or equal to 40 MPL is a risk factor for thrombosis and loss. For more information on this test, go to: http://Coupay.EndoChoice/faq/UDL152 Test Performed at: [facility] [address] [place], [place] ??[phone] CHRISTEL FRANCIS MD,PHD,ANTHONY Blood BLOOD SPECIMEN / Unknown 12/19/2017 1:15 PM CDT 12/19/2017 1:17 PM CDT Zabrina Anderson MD LAB - SEROLOGY ORDERABLES Performing Organization Address [facility] Co de Phone Number [facility] [id number] [place] [address] * LUPUS ANTICOAGULANT PANEL W RFLX (12/19/2017 1:15 PM CDT) Pathologist [facility] Lupus Anticoagulant see note [facility] Comment: A Lupus Anticoagulant is not detected. Reference Range: ??Not Detected ? http://Coupay.EndoChoice/faq/LupusAnticoag ? This interpretation is based on the following test results. PTT Lupus Anticoagulant 38 <=40 sec [facility] Interpretation Not Indicated [facility] dRVVT Screen 33 <=45 sec [facility] Comment: Test Performed at: [facility] ??[address] ACACIA PAREDES MD,PHD Blood BLOOD SPECIMEN / Unknown 12/19/2017 1:15 PM CDT 12/19/2017 1:17 PM CDT Zabrina Anderson MD LAB - HEMATOLO GY ORDERABLES Performing Organization Address [facility] de Phone Number [facility] [id number] [place] [address] * BETA-2 GLYCOPROTEIN 1 ANTIBODY IGG/IGM/IGA PANEL (12/19/2017 1:15 PM CDT) Pathologist [facility] B2 Glycoprotein Antibody IgG/IgA/IgM <9 <=20 [facility] Beta-2 Glycoprotein Antibody IgM <9 <=20 [facility] Beta-2 Glycoprotein I Antibody IgA <9 <=20 CHELLY [facility] Comment: The Antiphospholipid Antibody Syndrome (APS) is a clinical-pathologic correlation that includes a clinical event (e.g. thrombosis, loss, thrombocytopenia) and persistent positive Antiphospholipid Antibodies (IgM or IgG JOSE >40 MPL/GPL, IgM or IgG anti-B2GPI antibodies, or a Lupus Anticoagulant). The IgA isotype has been implicated in smaller studies, but have not yet been incorporated into the APS criteria. International consensus guidelines suggest waiting at least 12 weeks before retesting to confirm antibody persistence. Reference J Thromb Haemost 2006: 4; 295 For more information on this test, go to http://education.EndoChoice/faq/LRM048 Test Performed at: [facility] [employer] [address] ??[phone] ACACIA PAREDES MD,PHD Blood BLOOD SPECIMEN / Unknown 12/19/2017 1:15 PM CDT 12/19/2017 1:17 PM CDT Zabrina Anderson MD LAB - SEROLOGY ORDERABLES Performing Organization Address [facility] [place] [address] * RANGEL (SM) ANTIBODY ARABELLA (12/19/2017 1:15 PM CDT) SM Antibody <1.0 NEG <1.0 NEG AI [facility] Comment: Test Performed at: [facility] [address] [place] ??[address] TING MELVIN DO,MPH Blood BLOOD SPECIMEN / Unknown 12/19/2017 1:15 PM CDT 12/19/2017 1:17 PM CDT Zabrina Anderson MD LAB - CHEMISTR Y ORDERABLES Performing Organization Address [facility] [place] [address] * SCREENING NURSE ANTIBODY (12/19/2017 1:15 PM CDT) SCREENING NURSE Antibody <1.0 NEG <1.0 NEG AI [facility] Comment: Test Performed at: [facility] [place] [address] [place] ??[address] TING MELVIN DO,MPH Blood BLOOD SPECIMEN / Unknown 12/19/2017 1:15 PM CDT 12/19/2017 1:17 PM CDT Zabrina Anderson MD LAB - CHEMISTR Y ORDERABLES Performing Organization Address [facility] [place] [address] * RHEUMATOID FACTOR BLOOD QUANTITATIVE (12/19/2017 1:15 PM CDT) Pathologist [facility] Rheumatoid Factor <14 <14 IU/mL [facility] Comment: Test Performed at: [facility] [place] [address] [place] ??[address] TING MELVIN DO,MPH Blood BLOOD SPECIMEN / Unknown 12/19/2017 1:15 PM CDT 12/19/2017 1:17 PM CDT Zabrina Anderson MD LAB - CHEMISTR Y ORDERABLES Performing Organization Address [facility] [place] [address] * C-REACTIVE PROTEIN (12/19/2017 1:15 PM CDT) [facility] C-Reactive Protein 0.5 <8.0 mg/L [facility] Comment: Test Performed at: [facility] [place] [address] [place] ??[address] TING MELVIN DO,MPH Blood BLOOD SPECIMEN / Unknown 12/19/2017 1:15 PM CDT 12/19/2017 1:17 PM CDT Zabrina Anderson MD LAB - CHEMISTR Y ORDERABLES Performing Organization Address [facility] [place] [address] * (ABNORMAL) RACHELLE BLOOD TITER (12/19/2017 1:15 PM CDT) Pathologist [facility] RACHELLE Pattern DUAL(A) [facility] Comment: SPECKLED: Speckled pattern is associated with mixed connective tissue disease (MCTD), systemic lupus erythematosus (SLE), Sjogren's syndrome, dermatomyositis, and systemic sclerosis/polymyositis overlap. CENTROMERE: Centromere pattern is associated with limited cutaneous systemic sclerosis, CREST (Calcinosis, Raynaud's, Esophageal dysmotility, Sclerodactyly, Telangiectasia)and primary biliary cirrhosis (PBC). RACHELLE SEE BELOW(A) titer [facility] Comment: Pattern:SPECKLED Titer: ??1:1280 Pattern:CENTROMERE Titer: ??1:80 A low level RACHELLE titer may be present in pre-clinical autoimmune diseases and normal individuals. ?Reference Range ?<1:40 ?Negative ?1:40-1:80 ?Low Antibody Level ?>1:80 ?Elevated Antibody Level Test Performed at: [facility] ??[address] TING MELVIN DO,MPH 12/19/2017 1:1 5 PM CDT 12/19/2017 1:17 PM CDT Zabrina Anderson MD LAB - CHEMISTR Y ORDERABLES Performing Organization Address [facility] de Phone Number [facility] [address] [place] [address] * THYROID PEROXIDASE ANTIBODY (12/19/2017 1:15 PM CDT) Thyroid Peroxidase TPO Antibody 2 <9 IU/mL [facility] Comment: Test Performed at: [facility] ??[phone] TING MELVIN DO,MPH Blood BLOOD SPECIMEN / Unknown 12/19/2017 1:15 PM CDT 12/19/2017 1:17 PM CDT Zabrina Anderson MD LAB - CHEMISTR Y ORDERABLES Performing Organization Address [facility] Phone Number [address] [address] * (ABNORMAL) HISTONE ANTIBODY (12/19/2017 1:15 PM CDT) Histone Antibody 3.1(H) U [facility] Comment: Reference Ranges for Histone Antibodies: ?? <1.0 ? Negative ?? 1.0-1.5 ??Weak Positive ?? 1.6-2.5 ??Moderate Positive ?? >2.5 ? Strong Positive Test Performed at: [facility] [address] [place], [place] ??[address] CHRISTEL FRANCIS MD,PHD,ANTHONY Blood BLOOD SPECIMEN / Unknown 12/19/2017 1:15 PM CDT 12/19/2017 1:17 PM CDT Zabrina Anderson MD LAB - CHEMISTR Y ORDERABLES Performing Organization Address [facility] de Phone Number [facility] [id number] [place] [address] * (ABNORMAL) COMPLEMENT TOTAL (12/19/2017 1:15 PM CDT) Pathologist [facility] Complement Total CH50 >60(H) 31 - 60 U/mL [facility] Comment: Test Performed at: [facility] [address] [place] ??[address] TING MELVIN DO,MPH Blood BLOOD SPECIMEN / Unknown 12/19/2017 1:15 PM CDT 12/19/2017 1:17 PM CDT Zabrina Anderson MD LAB - CHEMISTR Y ORDERABLES Performing Organization Address [facility] de Phone Number [facility] [address] [place] [address] * SS-B (SJOGRENS'S) ANTIBODY (12/19/2017 1:15 PM CDT) Pathologist [facility] Sjogren's Antibodies (SSB) <1.0 NEG <1.0 NEG AI [facility] Comment: Test Performed at: [facility] [address] [place] ??[address] TING MELVIN DO,MPH Blood BLOOD SPECIMEN / Unknown 12/19/2017 1:15 PM CDT 12/19/2017 1:17 PM CDT Zabrina Anderson MD LAB - CHEMISTR Y ORDERABLES Performing Organization Address City/[facility] [place] [address] * SS-A (SJOGREN'S) ANTIBODY (12/19/2017 1:15 PM CDT) Sjogren's Antibodies (SSA) <1.0 NEG <1.0 NEG AI [facility] Comment: Test Performed at: [facility] [place] [address] [place] ??[address] TING MELVIN DO,MPH Blood BLOOD SPECIMEN / Unknown 12/19/2017 1:15 PM CDT 12/19/2017 1:17 PM CDT Zabrina Anderson MD LAB - CHEMISTR Y ORDERABLES Performing Organization Address [facility] [place] [address] * SCLERODERMA 70 (SCL) ANTIBODY (12/19/2017 1:15 PM CDT) SCL-70 Antibody <1.0 NEG <1.0 NEG AI [facility] Comment: Test Performed at: [facility] [place] [address] [place], [place] ??[address] TING MELVIN DO,MPH Blood BLOOD SPECIMEN / Unknown 12/19/2017 1:15 PM CDT 12/19/2017 1:17 PM CDT Zabrina Anderson MD LAB - CHEMISTR Y ORDERABLES Performing Organization Address [facility] [place] [address] * DNA ANTIBODY DOUBLE STRANDED (12/19/2017 1:15 PM CDT) dsDNA Antibody 1 IU/mL [facility] Comment: ? IU/mL ? Interpretation ? < or = 4 ?Negative ? 5-9 ? Indeterminate ? > or = 10 ?? Positive Test Performed at: [facility] [place] [address] [place] ??[address] TING MELVIN DO,MPH Blood BLOOD SPECIMEN / Unknown 12/19/2017 1:15 PM CDT 12/19/2017 1:17 PM CDT Zabrina Anderson MD LAB - HEMATOLO GY ORDERABLES Performing Organization Address [facility] de Phone Number [facility] [id number] [place] [address] * ERYTHROCYTE SEDIMENTATION RATE (12/19/2017 1:15 PM CDT) Pathologist [facility] Erythrocyte Sedimentation Rate Westergren 6 < OR = 20 mm/h [facility] Comment: Test Performed at: [facility] ??[address] TING MELVIN DO,MPH Blood BLOOD SPECIMEN / Unknown 12/19/2017 1:15 PM CDT 12/19/2017 1:17 PM CDT Zabrina Anderson MD LAB - HEMATOLO GY ORDERABLES Performing Organization Address [facility] de Phone Number [facility] [id number] [place] [address] * CBC W AUTO DIFFERENTIAL (12/19/2017 1:15 PM CDT) White Blood Cell Count 4.5 3.8 - 10.8 Thousand/u L [facility] RBC 4.27 3.80 - 5.10 Million/uL [facility] Hemoglobin 12.9 11.7 - 15.5 g/dL [facility] Hematocrit 39.5 35.0 - 45.0 % [facility] MCV 92.5 80.0 - 100.0 fL [facility] MCH 30.2 27.0 - 33.0 pg [facility] MCHC 32.7 32.0 - 36.0 g/dL [facility] RDW 12.1 11.0 - 15.0 % [facility] Platelet Count 236 140 - 400 Thousand/u L [facility] MPV 10.3 7.5 - 12.5 fL [facility] Neutrophil Absolute 2696 1500 - 7800 cells/uL [facility] Lymphocytes Absolute 1341 850 - 3900 cells/uL [facility] Absolute Monocytes 374 200 - 950 cells/uL [facility] Eosinophils Absolute 59 15 - 500 cells/uL [facility] Basophils Absolute 32 0 - 200 cells/uL [facility] Granulocytes % 59.9 % [facility] Lymphocytes % 29.8 % [facility] Monocytes % 8.3 % [facility] Eosinophils % 1.3 % [facility] Basophils % 0.7 % [facility] Comment: Test Performed at: [facility] [address] [place] ??[address] TING MELVIN DO,MPH Blood BLOOD SPECIMEN / Unknown 12/19/2017 1:15 PM CDT 12/19/2017 1:17 PM CDT Zabrina Anderson MD LAB - HEMATOLO GY ORDERABLES Performing Organization Address [facility] Co de Phone Number [facility] [address] [place] [address] * COMPLEMENT C4 (12/19/2017 1:15 PM CDT) Complement C4 17 15 - 57 mg/dL [facility] Comment: Test Performed at: [facility] [address] [place] [address] ??[phone] TING MELVIN DO,MPH Blood BLOOD SPECIMEN / Unknown 12/19/2017 1:15 PM CDT 12/19/2017 1:17 PM CDT Zabrina Anderson MD LAB - SEROLOGY ORDERABLES Performing Organization Address City/[facility] Co de Phone Number [facility] [address] [place] [address] * (ABNORMAL) COMPREHENSIVE METABOLIC PANEL (12/19/2017 1:15 PM CDT) Glucose 77 65 - 139 mg/dL [facility] Comment: ? Non-fasting reference interval BUN 9 7 - 25 mg/dL [facility] Creatinine 0.72 0.50 - 1.10 mg/dL [facility] eGFR by MDRD 116 > OR = 60 mL/min/1. 73m2 [facility] eGFR by MDRD 134 > OR = 60 mL/min/1. 73m2 [facility] BUN/Creatinine Ratio NOT APPLICABLE 6 - 22 (calc) [facility] Sodium 134(L) 135 - 146 mmol/L [facility] Potassium 3.7 3.5 - 5.3 mmol/L [facility] Chloride 98 98 - 110 mmol/L [facility] CO2 26 20 - 31 mmol/L [facility] Calcium 9.5 8.6 - 10.2 mg/dL [facility] Protein Total 8.1 6.1 - 8.1 g/dL [facility] Albumin 5.0 3.6 - 5.1 g/dL [facility] Globulin Total 3.1 1.9 - 3.7 g/dL (calc) [facility] Albumin/Globuli n Ratio 1.6 1.0 - 2.5 (calc) [facility] Bilirubin Total 0.5 0.2 - 1.2 mg/dL [facility] Alkaline Phosphatase 54 33 - 115 U/L [facility] AST 32(H) 10 - 30 U/L [facility] ALT 29 6 - 29 U/L [facility] Comment: Test Performed at: [employer] [place] ??[address] TING MELVIN DO,MPH Blood BLOOD SPECIMEN / Unknown 12/19/2017 1:15 PM CDT 12/19/2017 1:17 PM CDT Zabrina Anderson MD LAB - CHEMISTR Y ORDERABLES Performing Organization Address [facility] Co de Phone Number [facility] [address] [place] [address] * HEPATITIS B SURFACE ANTIGEN W RFLX CONFIRMATION (12/19/2017 1:15 PM CDT) Hepatitis B Virus Surface Antigen NON-REACTI VE NON-REACT VARGAS [facility] Comment: Test Performed at: [facility] [employer] [address] [place], [place] ??[address] TING EMLVIN DO,MPH Blood BLOOD SPECIMEN / Unknown 12/19/2017 1:15 PM CDT 12/19/2017 1:17 PM CDT Zabrina Anderson MD LAB - CHEMISTR Y ORDERABLES Performing Organization Address [facility] Co de Phone Number [facility] [id number] [place] [address] * CK BLOOD (12/19/2017 1:15 PM CDT) Pathologist [facility] CK 99 29 - 143 U/L [facility] Comment: Test Performed at: [facility] ??[address] TING MELVIN DO,MPH Blood BLOOD SPECIMEN / Unknown 12/19/2017 1:15 PM CDT 12/19/2017 1:17 PM CDT Zabrina Anderson MD LAB - CHEMISTR Y ORDERABLES Performing Organization Address [facility] de Phone Number [facility] [address] [place] [address] * TSH (12/19/2017 1:15 PM CDT) [facility] TSH 1.64 mIU/L [facility] Comment: ?Reference Range ?> or = 20 Years ??0.40-4.50 ? Ranges ?First trimester ?0.26-2.66 ?Second trimester ?? 0.55-2.73 ?Third trimester ?0.43-2.91 REPORT COMMENT: FASTING:NO Test Performed at: [facility] [address] ??[address] TING MELVIN DO,MPH Blood BLOOD SPECIMEN / Unknown 12/19/2017 1:15 PM CDT 12/19/2017 1:17 PM CDT Zabrina Anderson MD LAB - CHEMISTR Y ORDERABLES Performing Organization Address [facility] de Phone Number [facility] [address] [place] [address] * T4 FREE (12/19/2017 1:15 PM CDT) [facility] T4 Free 1.3 0.8 - 1.8 ng/dL [facility] Comment: Test Performed at: [facility] [address] [place] ??[address] TING MELVIN DO,MPH Blood BLOOD SPECIMEN / Unknown 12/19/2017 1:15 PM CDT 12/19/2017 1:17 PM CDT Zabrina Anderson MD LAB - CHEMISTR Y ORDERABLES Performing Organization Address [facility] [place] [address] * (ABNORMAL) COMPLEMENT C3 (12/19/2017 1:15 PM CDT) Complement C3 70(L) 83 - 193 mg/dL [facility] Comment: Test Performed at: [facility] [place] ??[address] TING MELVIN DO,MPH Blood BLOOD SPECIMEN / Unknown 12/19/2017 1:15 PM CDT 12/19/2017 1:17 PM CDT Zabrina Anderson MD LAB - CHEMISTR Y ORDERABLES Performing Organization Address [facility] [place] [address] * LAB HISTORICAL RESULTS-ONBASE (10/29/2011) 10/29/2011 Narrative [facility] - 02/28/2012 3:12 PM CDT Historical Provider LAB - CHEMISTRY O RDERABLES Performing Organization Address [facility] Co de Phone Number [facility] [address] Care Teams Transplanter Orchid Relationship Specialty Start Date End Date Jenny Hayes MD [address] [place] [address] [address] [place] [address] PCP - General 04/07/19
--- OUTSIDE RECORDS SUMMARY | 2024-06-25 05:44 | XMS_ITS | Encounter Summary ---
Author Organization [facility] Address [address] [facility] [place] [address] Care Team Providers Care Financial Operations Clerk Name Role Phone Jenny Hayes MD Primary Care Provider [phone] Encounter Details Date Type Department Care Team (Late st Contact Info) Description 04/11/2020 Lab Requisition [facility] [address] [facility] [place] [address] Merrill Carey MD [address] [facility] [place] [address] Social History Tobacco Use Types Packs/Day Years Used Date Smoking Tobacco: Never Smokeless Tobacco: Never Alcohol Use Standard Drinks/Week Comments No 0 (1 standard drink = 0.6 oz pur e alcohol) Sex and Gender Information Value Date Recorded Sex Assigned at Not on file Gender Identity Not on file Sexual Orientation Not on file documented as of this encounter Plan of Treatment Not on file documented as of this encounter Procedures Procedure Name Priority Date/Time Associated Diagnosis Comments DERMATOPATHOLOGY Routine 04/07/2020 12:0 0 AM ORTHOPEDIC DENTIST documented in this encounter Results * DERMATOPATHOLOGY (04/07/2020 12:00 AM ORTHOPEDIC DENTIST) Case Report Dermatopathology Report ? Case: [id number] ? Authorizing Provider: ??Merrill Carey MD ?Collected: ? 04/07/2020 12:00 AM ? Ordering Location: ? [facility] Lab ?Received: ?04/11/2020 06:25 AM ? Pathologist: ? Marj Erazo MD ? Specimens: ?? A) - Skin, right neck ? B) - Skin, right upper chest ? 0 12:50 PM [facility] DERMATOPATHOLOGY LABORATORY Final Diagnosis Specimen A. SKIN, right neck: INTRADERMAL MELANOCYTIC NEVUS (D22.4) Specimen B. SKIN, right upper chest: INTRADERMAL MELANOCYTIC NEVUS (D22.5) 0 12:50 PM [facility] DERMATOPATHOLOGY LABORATORY Clinical History A: Nevus R/O atypia. Path # [id number]. B: Nevus R/O atypia. Path # [id number]. 0 12:50 PM [facility] DERMATOPATHOLOGY LABORATORY Gross Description Specimen A: Received is one formalin filled container labeled with the patient's name and designated right neck. The specimen consists of a shave biopsy measuring [id number]. Jar 0. Specimen B: Received is one formalin filled container labeled with the patient's name and designated right upper chest. The specimen consists of a shave biopsy measuring [id number]. Jar 0. 0 12:50 PM [facility] DERMATOPATHOLOGY LABORATORY Microscopic Description Specimen A. SKIN, right neck: There are nests of cytologically bland melanocytes within the dermis that mature with depth. Specimen B. SKIN, right upper chest: There are nests of cytologically bland melanocytes within the dermis that mature with depth. 0 12:50 PM [facility] DERMATOPATHOLOGY LABORATORY Disclaimer An external and internal positive and negative controls are appropriate for the histochemical, immunohistochemical and immunofluorescence stain(s) in this case (if any), except where stated explicitly. The performance characteristics of the stain(s) cited in this report were developed and its performance characteristic determined by the Dermatopathology Laboratory at [facility], directed by Dr. Christine Rothman. These tests need not be, and therefore are not, approved by the [place] Food and Drug Administration. The tests are used for clinical purposes. Billing Codes Specimen Charges Stain Charges 55420 72612 1 1 0 12:50 PM ORTHOPEDIC DENTIST DERMATOPATHOLOGY LABORATORY Embedded Images 0 12:50 PM ORTHOPEDIC DENTIST DERMATOPATHOLOGY LABORATORY Pathology/Cytology TISSUE SPECIMEN FROM SKIN / Unknown 04/07/2020 04/11/2020 6:25 AM ORTHOPEDIC DENTIST Miscellaneous samples (specimen) TISSUE SPECIMEN FROM SKIN / Unknown 04/07/2020 04/11/2020 6:25 AM ORTHOPEDIC DENTIST Merrill Carey MD LAB - PATHOLOGY/CYTO LOGY ORDERABLES DERMATOPATHOLOGY LABORATORY [facility] - Department of Dermatology [address] [phone] documented in this encounter Visit Diagnoses Not on filedocumented in this encounter Care Teams Financial Operations Clerk Relationship Specialty Start Date End Date Jenny Hayes MD [address] [place] [address] [address] [place] [address] PCP - General 04/07/19 documented as of this encounter
--- OUTSIDE RECORDS SUMMARY | 2024-06-25 05:44 | XMS_ITS | Referral Summary ---
Author Organization [facility] Address [address] [place] [address] Care Team Providers Care Analyst Business Analysis Name Role Phone Jenny Hayes MD Primary Care Provider [phone] Source Comments [facility],non-owned Affiliates and Associated Physician Practices is amultiple site organization consisting of ambulatory clinics and hospital sitesin [place], [place], [place] and [place]. This disclosure is being madepursuant to the Care Everywhere program and may not contain all information available regarding this patient. Last updated 18.[facility] Allergies Active Allergy Reactions Criticality Noted Date Comments Penicillins Urticaria Medium 12/16/2017 Medications Be aware that medications may not be up to date on this document. Always verify current medications with the patient. No known medications Active Problems Patient Care Coordination No te Formatting of this note migh t be different from the original. Nopp/mfcc 04/2019 Problem Noted Date Diagnosed Date H/O systemic [...] Mass Index 23 12/16/2017 2:05 PM CDT Plan of Treatment Not on file Procedures Procedure Name Priority Date/Time Associated Diagnosis Comments HEPATITIS C AB W/RFLX TO HCV RNA QN PCR Routine 12/19/2017 1:15 PM CDT H/O systemic lupus erythematosus (SLE) (HCC) Positive RACHELLE (antinuclear antibody) Polyarthralgia Myalgia Other fatigue from Last 3 Months or Most Recently Relevant to Health Maintenance Results * HEPATITIS C AB W/RFLX TO HCV RNA QN PCR (12/19/2017 1:15 PM CDT) Hepatitis C Antibody NON-REACTI VE NON-REACT VARGAS [facility] Signal to Cut-Off 0.05 <1.00 [facility] Comment: Test Performed at: [facility] ??[phone] TING MELVIN DO,MPH Blood BLOOD SPECIMEN / Unknown 12/19/2017 1:15 PM CDT 12/19/2017 1:17 PM CDT Zabrina Anderson MD LAB - CHEMISTR Y ORDERABLES [facility] [address] [place] [address] from Last 3 Months or Most Recently Relevant to Health Maintenance Care Teams Analyst Business Analysis Relationship Specialty Start Date End Date Jenny Hayes MD [address] [place] [address] [address] [place] [id number] PCP - General 04/07/19
--- OUTSIDE RECORDS SUMMARY | 2024-06-25 05:44 | XMS_ITS | Clinical Summary ---
Author Organization [facility] [address] Address [address] [place] [address] Phone Care Team Providers Care Mechanic And Welder Name Role Phone Robel Ziegler MD Primary Care Prov ider Brenden Odonnell MD Unavailable [phone] Allergies Active Allergy Reactions Criticality Noted Date Comments Penicillins Penicillins Hives Medium 09/07/2018 Medications prenat vit 26-ncrp-dnpho-o m3,6 35-5-1.2-400 mg capsule Take by mouth daily Active coenzyme Q10 10 mg capsule Take 10 mg by mouth daily Active kzimo-5-lgo-epa -dpa-fish oil 1,050-1,200 mg capsule 1 capsule Active Active Problems Problem Noted Date Diagnosed Date Celiac disease 03/07/2021 Assessment & Plan (03/07/2021 2:05 PM CDT): She was evaluated by GI since last visit in diagnosed with celiac disease. She has been gluten free with improvement in her overall health and previous fatigue symptoms. Raynaud's disease without gangrene 09/07/2018 Assessment & Plan (03/07/2021 2:04 PM CDT): Continue symptomatic treatment. Denies digital sores Assessment & Plan (03/06/2020 2:49 PM CDT): Continue symptomatic treatment. Assessment & Plan (03/08/2019 2:42 PM CDT): Continue symptomatic treatment. Assessment & Plan (09/21/2018 12:18 PM CDT): Continue symptomatic treatment. Assessment & Plan (09/07/2018 2:20 PM CDT): Denies any sores on the fingertips. Discussed symptomatic treatment of hand warmers in the cold. Positive RACHELLE (antinuclear antibody) 09/07/2018 Overview (03/10/2020): Low c3/c4 complement, Positive RACHELLE 1:5120 homogeneous, low positive centromere, Low positive PS PT [facility] 03/09/2020: Strong positive RACHELLE 1:5120 homogeneous, positive Ro 52 IgG 54, positive centromere IgG 36, positive thyroglobulin IgG 73, positive PS PT 33 History of positive RACHELLE and low C3 complement along with a prior diagnosis of SLE 8-9 years prior. Presenting to ensure that SLE is not the cause for her recent fertility issues. Had prior CTD symptoms ~10 years prior, although since that time has remained essentially asymptomatic. Occasional alba ankle pains, which cannot attribute a time of day to symptoms. Rash on the under arm one year prior resolved with clobetasol of unknown significance. Otherwise, denies any other ctd symptoms. Less suspicious that SLE is the cause for her fertility issues. Assessment & Plan (03/07/2021 2:01 PM CDT): Patient initially presented due to positive RACHELLE along with low C3 complement with a prior diagnosis of SLE several years prior. She initially presented at our office, as she was having fertility issues and wanted to ensure that this was not secondary to SLE. Repeat labs on 08/2018 displayed a positive RACHELLE 1:5120 in a homogeneous pattern, mildly low C3/C4 complements, low positive centromere, low positive PS PT. Recheck Avise on 03/06/2020 revealed a persistent high positive RACHELLE 1:5120 in a homogeneous pattern, positive Ro 52 IgG 54, positive centromere protein be IgG 36, positive thyroglobulin 73, positive PS PT 33 without any other significant autoantibodies and C3 complement was mildly low at 63. Since last visit, she had her first child without any complications and is currently 5-6 weeks without any complications. She continues to deny any significant peripheral joint complaints. Has history of Raynaud's, but denies any other systemic complaints. At this time, still do not see any obvious evidence for an inflammatory arthritis and/or ctd. Will continue to monitor this given her prior abnormal serologies. Will recheck labs today. FU 1 year. Sooner if needed. She has been made aware of the higher risks associated with SSA ab. Her obgyn is also aware and monitoring this. Assessment & Plan (03/06/2020 2:47 PM CDT): Patient initially presented due to positive RACHELLE along with low C3 complement with a prior diagnosis of SLE several years prior. Had presented, she was having fertility issues and wanted to ensure that this is not secondary to SLE. Repeat serologies displayed a positive RACHELLE 1:5120 in a homogeneous pattern, mildly low C3/C4 complements, low positive centromere, low positive PS PT. History of raynaud's. Since last visit, she had her first child without any complications. She continues to deny any significant peripheral joint complaints. Denies any other systemic complaints. At this time, still do not see any obvious evidence for an inflammatory arthritis and/or ctd. Will continue to monitor this given her prior abnormal serologies. Will recheck labs today. FU 1 year. Sooner if needed. Seen with Dr. Odonnell. Assessment & Plan (03/08/2019 2:42 PM CDT): Patient issue the presented due to positive RACHELLE along with low C3 complement with a prior diagnosis of SLE several years prior. Had presented, she was having fertility issues and wanted to ensure that this is not secondary to SLE. Repeat serologies displayed a positive RACHELLE 1:5120 in a homogeneous pattern, mildly low C3/C4 complements, low positive centromere, low positive PS PT. History of raynaud's. Other than intermittent bilateral ankle pain which was exacerbated with use, patient denies any other peripheral joint complaints. Denies any other CTD symptoms. No obvious peripheral synovitis. Patient does possess serologies which can be seen with SLE, although not enough clinical evidence to support the diagnosis. Did not believe that this was a cause for her fertility issues and since this time, patient is now 14 weeks without any issues. Will have patient continue to follow with drafting supervisor for this. Will obtain repeat serologies. Follow-up 1 year. Sooner if needed. If continues to do well with minimal symptoms at next visit, will likely follow up as needed at that point. Assessment & Plan (09/21/2018 12:18 PM CDT): Patient continues to note intermittent mild occasional pain in the bilateral ankles, but denies any other joint pain or stiffness. Does have history of Raynaud's, but otherwise denies any other CTD symptoms. No obvious peripheral synovitis. Recent repeat serologies displayed a positive RACHELLE 1:5120 in a homogeneous pattern, mildly low C3/C4 complements, low positive centromere antibody, as well as low positive PS PT. Does possess serologies which can be seen with SLE, although do not see enough clinical evidence at this time to make this diagnosis. Do not believe that this is the cause for her fertility issues. Given her serologies, including high positive RACHELLE, will continue to monitor patient closely for any new development of symptoms. Follow-up 6 months. Sooner if needed. Seen with Dr. Odonnell. Assessment & Plan (09/07/2018 2:22 PM CDT): History of positive RACHELLE and low C3 complement along with a prior diagnosis of SLE 8-9 years prior. Presenting to ensure that SLE is not the cause for her recent fertility issues. Had prior CTD symptoms ~10 years prior, although since that time has remained essentially asymptomatic. Occasional alba ankle pains, which cannot attribute a time of day to symptoms. Rash on the under arm one year prior resolved with clobetasol of unknown significance. Otherwise, denies any other ctd symptoms. Less suspicious that SLE is the cause for her fertility issues. Will further evaluate with appropriate serologies. Fu 2 weeks. Sooner if needed. Seen with Dr. Odonnell. 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 Gender Identity Not on file Sexual Orientation Not on file Obstetrics History Last Filed Vital Signs Vital Sign Reading Time Taken Comments Blood Pressure 104/64 03/07/2021 1:22 PM CDT Pulse 71 03/07/2021 1:22 PM CDT Temperature 36.6 ??C (97.9 ??F) 03/07/2021 1:22 PM CD T Respiratory Rate - - Oxygen Saturation 100% 03/07/2021 1:22 PM CDT Inhaled Oxygen Concentration - - Weight 63 kg (138 lb 12.8 oz) 03/07/2021 1:22 PM CDT Height 161.5 cm (5' 3.58 ) 02/04/2010 9:14 PM CD T Body Mass Index - - Plan of Treatment Not on file Insurance [place] [address] [facility] HMO/PPO Address: [place] [address] [place] [address] Care Teams Mechanic And Welder Relationship Specialty Start Date End Date Robel Ziegler MD PCP - General Family Medicine 08/25/18 Brenden Odonnell MD [address] [address] Consulting Physician Rheumatology 08/25/18
--- OUTSIDE RECORDS SUMMARY | 2024-06-25 05:44 | XMS_ITS | Clinical Summary ---
Author Organization [facility] Address [address] [place] [address] Phone Care Team Providers Care Administrative Coordinator Name Role Phone Robel Ziegler MD Primary Care Provider [phone] Allergies Active Allergy Reactions Criticality Noted Date Comments Penicillins Hives High 12/16/2017 Medications multivit with calcium,iron,min (WOMEN'S MULTIPLE VITAMINS ORAL) Take by mouth. Active bisacodyL (DULCOLAX) 10 mg Suppository Insert 1 Suppository (10 mg) by rectum daily. Active Active Problems Problem Noted Date Diagnosed Date Left lower quadrant abdominal pain 01/22/2024 Bowel habit changes 01/22/2024 Positive RACHELLE (antinuclear antibody) 01/22/2024 Rectal bleeding 12/06/2021 Bilateral lower abdominal pain 12/06/2021 Constipation 12/06/2021 Abnormal liver enzymes 07/27/2021 Antinuclear antibody (RACHELLE) titer greater than 1: 80 07/27/2021 Bilateral upper abdominal pain 10/03/2020 Celiac disease 07/24/2020 Abnormal LFTs (liver function tests) 07/24/2020 Encounters Date Type Department Care Team Description 06/23/2024 External Device Data [facility] ABSTRACTION Provider, Abstract from Last 3 Months Family History Medical History Relation Name Comments Colon Cancer Neg Hx Social History Tobacco Use Types Packs/Day Years Used Date Smoking Tobacco: Never Smokeless Tobacco: Never Tobacco Cessation:Counseling Given: Not Answered Alcohol Use Standard Drinks/Week Comments Yes 0 (1 standard drink = 0.6 oz pur e alcohol) Comments Unknown Sex and Gender Information Value Date Recorded Sex Assigned at Not on file Legal 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 Gender Identity Not on file Sexual Orientation Not on file Last Filed Vital Signs Vital Sign Reading Time Taken Comments Blood Pressure 107/66 01/22/2024 2:01 PM CDT Pulse 61 01/22/2024 2:01 PM CDT Temperature 37.1 ??C (98.7 ??F) 12/24/2021 3:14 PM CD T Respiratory Rate 16 12/24/2021 3:20 PM CDT Oxygen Saturation 100% 12/24/2021 3:20 PM CDT Inhaled Oxygen Concentration - - Weight 62.6 kg (138 lb) 01/22/2024 2:01 PM CDT Height 162.6 cm (5' 4 ) 01/22/2024 2:01 PM CDT Body Mass Index 23.69 01/22/2024 2:01 PM CDT Plan of Treatment Upcoming Encounters Date Type Department Care Team (Late st Contact Info) Description 09/02/2024 2:00 PM CDT Office Visit [facility] Hepatology [address], [address] [place] [address] Ainsley Chacon PA [address] [place] [address] Health Maintenance Due Date Last Done Comments DTAP/TDAP/TD VACCINES (1 - Tdap) 2010 HEPATITIS B VACCINES (1 of 3 - 19+ 3-dose series) 2010 CERVICAL CANCER SCREENING 2021 INFLUENZA VACCINE (#1) 2024 HPV VACCINES Aged Out No longer eligi ble based on patient's age to complete this topic PNEUMOCOCCAL VACCINE 0-64 YEARS Aged Out No longer eligible based on patient's age to complete this topic Insurance Advance Directives For more information, please contact: [phone] * Full Code (Latest Code Status on File) Date Activated Date Inactivated Comments 12/24/2021 1:49 PM 12/24/2021 5:39 PM * Full Code Date Activated Date Inactivated Comments 07/24/2020 10:46 AM 07/24/2020 2:03 PM Care Teams Administrative Coordinator Relationship Specialty Start Date End Date Robel Ziegler MD [address] [address] PCP - General Family Practice 04/10/20
--- OUTSIDE RECORDS SUMMARY | 2024-06-25 05:44 | XMS_ITS | Referral Summary ---
Author Organization [facility] [address] Address [address] [place] [address] Phone Care Team Providers Care New Autos Delivery Driver Name Role Phone Robel Ziegler MD Primary Care Prov ider Brenden Odonnell MD Unavailable [phone] Allergies Active Allergy Reactions Criticality Noted Date Comments Penicillins Penicillins Hives Medium 09/07/2018 Medications prenat vit 28-ctaq-poyvy-o m3,6 35-5-1.2-400 mg capsule Take by mouth daily Active coenzyme Q10 10 mg capsule Take 10 mg by mouth daily Active sbhqh-3-aso-epa -dpa-fish oil 1,050-1,200 mg capsule 1 capsule [...] Will have patient continue to follow with orthodontic assistant for this. Will obtain repeat serologies. 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
--- OUTSIDE RECORDS SUMMARY | 2024-06-25 05:44 | XMS_ITS | Encounter Summary ---
Author Organization [facility] Address [address] [place] [address] Care Team Providers Care Engineer/Conductor Name Role Phone Robel Ziegler MD Primary Care Provider [phone] Encounter Details Date Type Department Care Team (Late st Contact Info) Description 06/23/2024 External Device Data [facility] ABSTRACTION Provider, Abstract NO ADDRESS ON FILE Social History Tobacco Use Types Packs/Day Years Used Date Smoking Tobacco: Never Smokeless Tobacco: Never Alcohol Use Standard Drinks/Week Comments Yes 0 (1 standard drink = 0.6 oz pur e alcohol) Comments Unknown Sex and Gender Information Value Date Recorded Sex Assigned at Not on file Legal 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 PROFESSIONAL Gender Identity Not on file Sexual Orientation Not on file documented as of this encounter Plan of Treatment Upcoming Encounters Date Type Department Care Team (Late st Contact Info) Description 09/02/2024 2:00 PM CDT Office Visit [facility] Hepatology [address], [address] [place] [address] Ainsley Chacon PA [address] [place] [address] documented as of this encounter Visit Diagnoses Not on filedocumented in this encounter Care Teams Engineer/Conductor Relationship Specialty Start Date End Date Robel Ziegler MD [address] [place] [address] PCP - General Family Practice 04/10/20 documented as of this encounter
--- OUTSIDE RECORDS SUMMARY | 2024-06-25 05:44 | XMS_ITS | Clinical Summary ---
Author Organization [facility] Address [address] [place] [address] Care Team Providers Care Interactive Designer Name Role Phone Jenny Hayes MD Primary Care Provider [phone] Source Comments [facility],non-owned Affiliates and Associated Physician Practices is amultiple site organization consisting of ambulatory clinics and hospital sitesin [place], [place], [place] and [place]. This disclosure is being madepursuant to the Care Everywhere program and may not contain all information available regarding this patient. Last updated 18.[facility] Allergies Active Allergy Reactions Criticality Noted Date [...] of resulting from in vitro fertilization, antepartum Family History Medical History Relation Name Comments None Known Brother None Known Father Thyroid Disease Maternal Grandmother Thyroid Disease Mother None Known Sister Relation Name Status Comments Brother Father Maternal Grandmother Mother Sister Social History Tobacco Use Types Packs/Day Years [...] 12/16/2017 2:05 PM CDT Plan of Treatment Health Maintenance Due Date Last Done Comments PAP SMEAR 1991 HIV SCREENING 2006 DTAP/TDAP/TD VACCINES (1 - Tdap) 2010 HEPATITIS B VACCINE (1 of 3 - 19+ 3-dose series) 2010 COVID-19 VACCINE ( - 2023-2 5 season) 2024 INFLUENZA VACCINE (#1) 2024 DEPRESSION SCREENING 06/02/2024 ZOSTER VACCINE (1 of 2) 2041 HEPATITIS C SCREENING Completed 12/19/2017 HIB VACCINE Aged Out No longer eligi ble based on patient's age to complete this topic HPV VACCINE Aged Out No longer eligi ble based on patient's age to complete this topic MENINGOCOCCAL (Group B) VACCINE Aged Out No longer eligible based on patient's age to complete this topic MENINGOCOCCAL VACCINE Aged Out No sandra shay eligible based on patient's age to complete this topic PNEUMOCOCCAL VACCINE Aged Out No long er eligible based on patient's age to complete this topic Procedures Procedure Name Priority Date/Time Associated Diagnosis [...] 0.05 <1.00 [facility] Comment: Test Performed at: [facility] [address] [place] [address] ??[phone] TING MELVIN DO,MPH Blood BLOOD SPECIMEN / Unknown 12/19/2017 1:15 PM CDT 12/19/2017 1:17 PM CDT Zabrina Anderson MD LAB - CHEMISTR Y ORDERABLES [facility] [address] [place] [address] from Last 3 Months or Most Recently Relevant to Health Maintenance Care Teams Interactive Designer Relationship Specialty Start Date End Date Jenny Hayes MD [address] [place] [address] PCP - General 04/07/19
[2024-06-29 20:33] LABS: Testosterone Total 16 ng/dL (2-45)
[2024-06-30 14:49] LABS: Vitamin D 1,25 (OH)2 Total 46 pg/mL (18-72); Vitamin D2 1,25 (OH)2 <8 pg/mL; Vitamin D3 1,25 (OH)2 46 pg/mL
== END 2024-06-24 14:27 | disposition home or self-care (01) ==
PROVIDERS: Visit Provider Student in an Organized Health Care Education/Training Program
DX: R53.83 Other fatigue (principal); L65.9 Nonscarring hair loss, unspecified
CPT/HCPCS: 36415; 82607; 82652; 84403; 84443

== ENCOUNTER 2024-07-08 07:42 | Outpatient (CLI) | payer OTHER, SELFPAY ==
--- NOTE | ~2024-07-08 | MMUS_ITS ---
EXAMINATION: MM diagnostic mary jo BI w bonnie, US breast BI complete HISTORY: Bacteremia TECHNIQUE: Additional 3-D tomosynthesis images of the breasts were performed and synthetic 2-D images were generated. CAD analysis was submitted and interpreted. High resolution bilateral complete breas t ultrasound was performed. COMPARISON: None BREAST PARENCHYMAL COMPOSITION: Dense: The breasts are extremely dense, which lowers the sensitivity of mammography. FINDINGS: MAMMOGRAPHIC FINDINGS: There are no suspicious masses, calcifications or architectural distortion in either breast to sugges t malignancy. ULTRASOUND: Complete US of all 4 quadrants of the breast/s and retroareolar region was reviewed. Normal heterogen eous echotexture throughout both breasts without discrete solid or cystic mass. IMPRESSION: 1. No evidence for malignancy in either breast. 2. Routine yearly screening mammogram at age 40 and regular clinical breast examination are recommend ed. BI-RADS Category 1: Negative Reviewed, dictated and finalized at location B. MATIC SYSTEMS OPERATOR IMPRESSION: 1. No evidence for malignancy in either breast. 2. Routine yearly screening mammogram at age 40 and regular clinical breast exa mination are recommended. BI-RADS Category 1: Negative
== END 2024-07-08 07:43 | disposition home or self-care (01) ==
PROVIDERS: PCP Family Medicine Adolescent Medicine; Visit Provider Student in an Organized Health Care Education/Training Program
DX: N64.3 Galactorrhea not associated with childbirth (principal)
CPT/HCPCS: 76641; 77062; 77066; G0279

== ENCOUNTER 2024-08-01 10:34 | Emergency (ER) | payer OTHER, SELFPAY ==
--- NOTE | 2024-08-01 10:40 | ED.EAR ---
HPI - Ear Problem General Chief complaint: Ear Stated complaint: Ear Pain Time Seen by Provider: 08/01/24 11:00 Source: patient Mode of arrival: ambulatory Limitations: no limitations History of Present Illness HPI Narrative: Ifrah is a 34-year-old female patient presenting to the clinic today with complaints sinus congestion and ear pain for 3 days. She denies any fevers, chills, or body aches. Nasal drainage is clear. No chest pain or shortness of breath Related Data Allergies Allergy/AdvReac Type Severity Reaction Status Date / Time Penicillins Allergy Mild Hives Verified 08/01/24 10:49 Review of Systems Review of Systems: Pertinent positives per HPI. Patient denies any fever, chills, rash, visual changes, dizziness, sore throat, shortness of breath, chest pain, palpitations, nausea, vomiting, diarrhea, constipation, abdominal pain, or any urinary issues. [facility] Past Medical History Medical History Celiac disease Surgical History Surgical History Hx of tonsillectomy Family History Family History Grandparent Breast cancer Bladder cancer Other No pertinent family history Social History Social History Smoking status: Never smoker Alcohol intake: current Alcohol use details: rare Substance use: never Substance use type: does not use Do You Feel Safe in your Home?: Yes Lack of Transportation: No Lack of Food: Never True Current Housing: I Have Housing Concerned About Future Housing: No Difficulty Paying Gas/Electric Bills: No Difficulty Paying for Meds: No Currently Unemployed: No Education: Master's Degree or Higher Difficulty w/ Childcare or Family Care: No Living arrangements: with family Occupation/Education: occupation Gender identity (if verbalized by the patient): Female Spiritual care concerns: No Comments At the time of my signature, I reviewed and agree with the nursing past medical, surgical, social, and family history. There is no relevant family history pertinent to the patient complaint. Exam Narrative: General: Well-developed, well nourished, in no apparent distress Head: Normocephalic, atraumatic Eyes: Pupils equally round and reactive to light bilaterally, EOM intact, sclera and conjunctive clear, no discharge, lids normal Ears: TMs intact and congested, ear canals clear, no drainage, grossly hearing normal. Nose: Nares patent, clear nasal discharge, no inflammation, no sinus tenderness. Mouth: Oropharynx without lesions or masses, good dentition, MMM. Neck: Supple, trachea midline, no enlargement of anterior or posterior cervical nodes, no thyroid masses or goiter palpable. Cardio: Regular rate and rhythm, s1 and s2 normal, no murmur appreciated. Resp: Clear to auscultation bilaterally anteriorly and posteriorly, no rhonchi, rales, wheezing or rubs Course Course Emergency Course: Portions of this record may have been created with voice recognition software. Level of Care: Express Care Visit Vital Signs Vital signs: Vital signs reviewed Medical Decision Making MDM Narrative Medical decision making narrative: At the time of visit patient is resting comfortably on the exam table. Patient appears to be nontoxic. Plan: I suspect patient has URI. Prescription for prednisone was sent to the pharmacy. Supportive measures were discussed with the patient and they voiced understanding discharge instructions and agrees to treatment plan. Return precautions reviewed Differential Diagnosis Differential Diagnosis: Otitis media, otitis externa, eustachian tube dysfunction, cerumen impaction, upper respiratory infection, serous otitis Discharge Plan Discharge Clinical Impression: Otalgia of right ear URI (upper respiratory infection) Qualifiers: URI type: unspecified URI Qualified Code(s): J06.9 - Acute upper respiratory infection, unspecified Patient Disposition: Home, Self-Care Condition: Stable Instructions: Antibiotic Form, Earache (ED), Cold Symptoms (ED) Additional Instructions: Take prescription medications only as prescribed-prednisone Increase fluids and stay well hydrated Tylenol/motrin for pain/fever Flonase and OTC antihistamines as directed Vicks vapor rub to open sinuses Sinus rinses for congestion Cepacol spray, cough drops, throat lozenges, warm tea with honey/lemon, gargle salt water to soothe throat BRAT diet for diarrhea Clear liquids x 24 hours then advance as tolerated for nausea/vomiting Go to the ED if you develop a worsening in your condition- high fever not controlled by Tylenol or Motrin, dehydration, weakness, lethargy, shortness of breath, or chest pain. Follow up with your PCP in 3-5 days if symptoms persist. Patient Language: Malagasy Prescriptions: New prednisone 20 mg tablet 40 mg PO DAILY 5 Days Qty: 10 0RF Follow-up/Referrals: Robel Ziegler MD [Primary Care Provider] - Time of Disposition: 10:53 Quality NIHSS Nursing Documentation ED NIHSS nursing documentation: reviewed/agree
[2024-08-01 10:43] VITALS: BP 96/63; PULSE 64; RESP 16; TEMP 36.8; O2SAT 100
== END 2024-08-01 11:00 | disposition home or self-care (01) ==
PROVIDERS: Emergency Provider Nurse Practitioner Family; PCP Family Medicine Adolescent Medicine
DX: J06.9 Acute upper respiratory infection, unspecified (principal); H92.01 Otalgia, right ear
CPT/HCPCS: 99213; G0463